=== PATIENT | female | born 1985 | race African-American/Black ===

== ENCOUNTER 2019-08-14 01:35 | Inpatient (IN) | payer OTHER ==
[2019-08-14 03:46] LABS: BASO % 0.3 % (0-2.0); EOS % 1.8 % (0-4.5); HEMATOCRIT 33.4 % (32.4-45.2); HEMOGLOBIN 10.6 GM/dL (10.7-15.3); LYMPH % 21.5 % (8-40); MCH 23.9 pg (25.7-33.7); MCHC 31.7 g/dl (32.0-36.0); MEAN CELL VOLUME 75.5 fl (80-96); MEAN PLT VOLUME 9.1 fl (7.5-11.1); MONO % 6.7 % (3.8-10.2); NEUT % 69.7 % (42.8-82.8); PLATELET COUNT 234 K/MM3 (134-434); RBC 4.42 M/mm3 (3.60-5.2); RDW 16.4 % (11.6-15.6)
[2019-08-14 04:16] LABS: BLOOD UREA NITROGEN 13.2 mg/dL (7-18); CALCIUM 8.9 mg/dL (8.5-10.1); CREATININE 0.5 mg/dL (0.55-1.3); POTASSIUM 4.2 mmol/L (3.5-5.1)
[2019-08-14 04:22] LABS: INR 0.91 (0.83-1.09); PROTHROMBIN TIME (PATIENT) 10.7 SEC (9.7-13.0)
[2019-08-14 04:25] LABS: ACTIVATED PTT 31.2 SECONDS (25.2-36.5)
[2019-08-14] MEDS ORDERED: AMPICILLIN - 2 GM in SODIUM CHLORIDE 100 ML IVPB STA (06:02)
[2019-08-14] MEDS ORDERED: ELECTROLYTE-148 SOLN 500 ML IV STA (06:05)
[2019-08-14 06:15] VITALS: BMI 53.6
[2019-08-14] MEDS ORDERED: CITRIC ACID/SODIUM CITRATE 30 ML UNIT-DOSE CUP PO ONE ×2 (06:15→08:45)
[2019-08-14] MEDS ORDERED: ELECTROLYTE-148 SOLN 1,000 ML IV SCH ×3 (06:15→08:45)
[2019-08-14] MEDS ORDERED: AMPICILLIN SODIUM 2 GM VIAL ONE (06:18)
[2019-08-14 07:08] LABS: URINE APPEARANCE TURBID; URINE BILIRUBIN NEGATIVE (NEGATIVE); URINE COLOR YELLOW; URINE GLUCOSE (UA) NEGATIVE (NEGATIVE); URINE KETONE NEGATIVE (NEGATIVE)
[2019-08-14 07:09] LABS: PH,URINE 7.5 (5.0-8.0); URINE NITRITE NEGATIVE (NEGATIVE); URINE PROTEIN 2+ (NEGATIVE); URINE UROBILINOGEN NORMAL mg/dL (0.2-1.0)
[2019-08-14 07:10] LABS: EPI CELLS 123.1 /HPF (0-5/HPF); URINE LEUK ESTERASE 3+ (NEGATIVE); URINE RBC 35.6 /hpf (0-4); URINE WBC 13.8 /hpf (0-5)
[2019-08-14 07:11] LABS: URINE BACTERIA 1315.5 /hpf (NEGATIVE)
[2019-08-14] MEDS ORDERED: DEXTROSE 5%-LACTATED RINGERS 1,000 ML IV SCH (08:45)
--- NOTE | 2019-08-14 08:56 | HP ---
Past Medical History - Admission Chief Complaint: Leakage of fluid History of Present Illness: 33 yo with chronic hypertension and prior twin delivery, @ 38.3 weeks gestation, EDC 08/25/19, admitted due to leakage of fluid. She also c/o back pain. Upon admission there was gross pooling. History Source: Patient Limitations to Obtaining History: Other (Obesity) - Past Medical History ...: 3 ...Para: 3 ...Term: 1 ...: 1 ...Spon : 0 ...Induced : 0 ...Multiple Gestation: 0 ... Weeks Gestation by Dates: 38.3 ...EDC by Dates: 08/25/19 - Past Surgical History Past Surgical History: Yes: None Hx Myomectomy: No Hx Transabdominal Cerclage: No - Smoking History Smoking history: Current every day smoker Have you smoked in the past 12 months: Yes Aproximately how many cigarettes per day: 10 - Alcohol/Substance Use Hx Alcohol Use: No - Social History History of Recent Travel: No Home Medications - Allergies Allergies/Adverse Reactions: Allergies Allergy/AdvReac Type Severity Reaction Status Date / Time No Known Drug Allergies Allergy Verified 08/14/19 02:20 - Home Medications Home Medications: Ambulatory Orders Vit/Iron Fum/Folic AC [ Tablet] 1 tablet PO DAILY 05/26/16 Labetalol HCl 100 mg PO BID 08/14/19 Review of Systems - Review of Systems Constitutional: reports: No Symptoms Eyes: reports: No Symptoms HENT: reports: No Symptoms Neck: reports: No Symptoms Cardiovascular: reports: No Symptoms Respiratory: reports: No Symptoms Gastrointestinal: reports: No Symptoms Genitourinary: reports: Pain, Other (Leakage of amniotic membrane) Breasts: reports: No Symptoms Reported Musculoskeletal: reports: No Symptoms Integumentary: reports: No Symptoms Neurological: reports: No Symptoms Endocrine: reports: No Symptoms Hematology/Lymphatic: reports: No Symptoms Psychiatric: reports: No Symptoms Pain Intensity: 3 Physical Exam - Maternity Vital Signs: Vital Signs Temperature 98.1 F 08/14/19 08:25 Pulse Rate 79 08/14/19 08:25 Respiratory Rate 20 08/14/19 08:25 Blood Pressure 148/87 08/14/19 08:25 O2 Sat by Pulse Oximetry (%) Eyes: Yes: Conjunctiva Clear HENT: Yes: Atraumatic Neck: Yes: Supple Cardiovascular: Yes: Regular Rate and Rhythm Lungs: Clear to auscultation Breast(s): Yes: WNL - Abdominal Exam/OB Number of Fetuses: Single Presentation: Vertex Contractions: Yes Regularity: Irregular Intensity: Mild - Vaginal Exam/OB Vaginal Bleediing: No Dilatation (cm): 1-2 Effacement (%): 60 Amniotic Membrane Status: Ruptured Amniotic Fluid: Yes: Clear Station: -4 - Physical Exam Musculoskeletal: Yes: WNL Extremities: Yes: WNL Integumentary: Yes: WNL ...Motor Strength: WNL Psychiatric: Yes: Alert, Oriented - Labs Lab Results: CBC, BMP 08/14/19 03:00 08/14/19 03:00 Problem List - Problems (1) Spontaneous rupture of amniotic membranes Problems reviewed: Yes Code(s): EVX9876 - (2) 38 weeks gestation of Problems reviewed: Yes Code(s): Z3A.38 - 38 WEEKS GESTATION OF (3) Chronic hypertension affecting Code(s): O10.919 - UNSP PRE-EXISTING HTN COMP , UNSP TRIMESTER (4) Obesity (BMI 30-39.9) Code(s): E66.9 - OBESITY, UNSPECIFIED (5) macrosomia affecting management of mother, antepartum Code(s): O36.60X0 - MATERNAL CARE FOR EXCESS GROWTH, UNSP TRIMESTER, UNSP Assessment/Plan 38 weeks gestation macrosomia Chronic hypertension Obesity Admit to L&D
--- NOTE | 2019-08-14 09:06 | PN ---
Progress Note (short form) - Note Progress Note: Due to suspicion of macrosomia, decision made for . Consent signed Patient also requests permanent sterilization. Consent for BTL is in chart Problem List - Problems (1) Spontaneous rupture of amniotic membranes Code(s): [id number] - (2) 38 weeks gestation of Code(s): Z3A.38 - 38 WEEKS GESTATION OF (3) Chronic hypertension affecting Code(s): O10.919 - UNSP PRE-EXISTING HTN COMP , UNSP TRIMESTER (4) Obesity (BMI 30-39.9) Code(s): E66.9 - OBESITY, UNSPECIFIED (5) macrosomia affecting management of mother, antepartum Code(s): O36.60X0 - MATERNAL CARE FOR EXCESS GROWTH, UNSP TRIMESTER, UNSP
[2019-08-14] MEDS ORDERED: BUTORPHANOL TARTRATE 1 MG/ML VIAL ONE (09:12)
[2019-08-14] MEDS ORDERED: BUTORPHANOL TARTRATE 2 MG/ML VIAL IVPUSH PRN (09:12)
[2019-08-14] MEDS ORDERED: PROMETHAZINE HCL 25 MG/1 ML VIAL IVPUSH ONE (09:14)
[2019-08-14] MEDS ORDERED: AMPICILLIN SODIUM 1 GM VIAL ONE (09:50)
[2019-08-14] MEDS: AMPICILLIN - 1 GM in SODIUM CHLORIDE 100 ML IVPB SCH ×2 (09:57→15:27)
[2019-08-14] MEDS ORDERED: OXYTOCIN 20 UNITS in 0.9% NS 40 UNIT/2,000 ML INFUS.BAG IV ONE (10:26)
[2019-08-14] MEDS ORDERED: morphine SULFATE/PF 0.5 MG/ML (2cc Syringe - QUVA) ONE (10:30)
[2019-08-14] MEDS ORDERED: IBUPROFEN 800 MG/8 ML IJ IVPB PRN (11:58)
[2019-08-14] MEDS ORDERED: METHYLERGONOVINE MALEATE 0.2 MG/1 ML AMP IM PRN ×2 (11:58→13:06)
[2019-08-14] MEDS ORDERED: IBUPROFEN 600 MG TABLET (FP) PO PRN (11:58)
[2019-08-14] MEDS ORDERED: SIMETHICONE 80 MG TAB.CHEW (FP) PO PRN (11:58)
--- NOTE | 2019-08-14 11:58 | OP ---
Operative Note - Note: Operative Date: 08/14/19 Pre-Operative Diagnosis: Suspicion of macrosomia / Multiparity Operation: Primary Low Transverse / Bilateral tubal ligation Findings: Baby in cephallic presentation Surgeon: Mckenna Santana Full Service Supervisor: Bud Vega Anesthesia: Spinal Specimens Removed: Placenta Estimated Blood Loss (mls): 700 Operative Report Dictated: Yes
[2019-08-14] MEDS: OXYTOCIN 20 UNITS in 0.9% NS 20 UNIT/1,000 ML INFUS.BAG IV SCH ×2 (12:05→18:39)
[2019-08-14] MEDS: FERROUS SO4 325 MG TABLET (FP) PO SCH (17:54)
[2019-08-14] MEDS: LABETALOL HCL 200 MG TABLET (FP) PO SCH (21:19)
[2019-08-15] MEDS: ACETAMINOPHEN 1000 MG/100 ML VIAL (NON FORMULARY) IVPB PRN ×2 (06:01→12:18)
[2019-08-15 08:11] LABS: BASO % 0.2 % (0-2.0); EOS % 1.3 % (0-4.5); LYMPH % 14.6 % (8-40); MCH 24.2 pg (25.7-33.7); MEAN CELL VOLUME 77.8 fl (80-96); MEAN PLT VOLUME 9.1 fl (7.5-11.1); MONO % 6.2 % (3.8-10.2); NEUT % 77.7 % (42.8-82.8); PLATELET COUNT 183 K/MM3 (134-434); RBC 3.72 M/mm3 (3.60-5.2); RDW 16.5 % (11.6-15.6); WHITE BLOOD COUNT 12.3 K/mm3 (4.0-10.0)
[2019-08-15] MEDS: FERROUS SO4 325 MG TABLET (FP) PO SCH ×2 (08:35→17:40)
[2019-08-15] MEDS: LABETALOL HCL 200 MG TABLET (FP) PO SCH ×2 (09:58→21:16)
[2019-08-15] MEDS: PRENATAL VITAMINS W/ FOLIC ACID TABLET (FP) PO SCH (09:58)
[2019-08-15] MEDS: ENOXAPARIN NA (PORCINE) 40 MG/0.4 ML DISP.SYRIN SQ SCH (09:58)
[2019-08-15] MEDS: SIMETHICONE 80 MG TAB.CHEW (FP) PO PRN ×2 (09:59→21:16)
[2019-08-15] MEDS ORDERED: BISACODYL 10 MG SUPP.RECT RC PRN ×2 (11:59→13:06)
--- NOTE | 2019-08-15 14:16 | PN ---
Progress Note (short form) - Note Progress Note: Anesthesiologist post op note POD#1 S/P C- section under spinal with duramorph. VSS. Ambulating. No apparent post anesthesia complications.
--- NOTE | 2019-08-15 21:15 | PN ---
Post Progress Note - Subjective Subjective: 33 yo Para 4 status post primary , seen and evaluated. She's lying in bed; she denies any headache blurry vision nor epigastric pain. Blood pressure is controlled with Labetalol. Post Day: 1 Type of Delivery: Primary C/S Vital Signs: Vital Signs Temperature 99.1 F 08/15/19 18:00 Pulse Rate 90 08/15/19 18:00 Respiratory Rate 17 08/15/19 18:00 Blood Pressure 131/62 08/15/19 18:00 O2 Sat by Pulse Oximetry (%) 98 08/14/19 21:00 Breast Exam: Yes: Soft Uterus: Yes: Fundus below umbilicus Incision: Yes: Dressing dry and intact Abdomen/GI: Yes: Tolerating PO. No: Abdominal Distention Lochia: Yes: Rubra Lochia, amount: Small Extremities: Yes: Edema Activity: Ambulating - Labs Labs: CBC WBC 12.3 K/mm3 (4.0-10.0) H 08/15/19 07:05 RBC 3.72 M/mm3 (3.60-5.2) 08/15/19 07:05 Hgb 9.0 GM/dL (10.7-15.3) L 08/15/19 07:05 Hct 29.0 % (32.4-45.2) L 08/15/19 07:05 MCV 77.8 fl (80-96) L 08/15/19 07:05 MCH 24.2 pg (25.7-33.7) L 08/15/19 07:05 MCHC 31.0 g/dl (32.0-36.0) L 08/15/19 07:05 RDW 16.5 % (11.6-15.6) H 08/15/19 07:05 Plt Count 183 K/MM3 (134-434) D 08/15/19 07:05 MPV 9.1 fl (7.5-11.1) 08/15/19 07:05 Absolute Neuts (auto) 9.6 K/mm3 (1.5-8.0) H 08/15/19 07:05 Neutrophils % 77.7 % (42.8-82.8) 08/15/19 07:05 Lymphocytes % 14.6 % (8-40) D 08/15/19 07:05 Monocytes % 6.2 % (3.8-10.2) 08/15/19 07:05 Eosinophils % 1.3 % (0-4.5) 08/15/19 07:05 Basophils % 0.2 % (0-2.0) 08/15/19 07:05 Nucleated RBC % 0 % (0-0) 08/15/19 07:05 Problem List - Problems (1) Spontaneous rupture of amniotic membranes Problems reviewed: Yes Code(s): [id number] - (2) 38 weeks gestation of Problems reviewed: Yes Code(s): Z3A.38 - 38 WEEKS GESTATION OF (3) Chronic hypertension affecting Problems reviewed: Yes Code(s): O10.919 - UNSP PRE-EXISTING HTN COMP , UNSP TRIMESTER (4) Obesity (BMI 30-39.9) Problems reviewed: Yes Code(s): E66.9 - OBESITY, UNSPECIFIED (5) macrosomia affecting management of mother, antepartum Problems reviewed: Yes Code(s): O36.60X0 - MATERNAL CARE FOR EXCESS GROWTH, UNSP TRIMESTER, UNSP Assessment/Plan Status post primary Chronic hypertension Obesity Ambulation Continue Labetalol Continue DVT prophylaxis
[2019-08-15] MEDS: oxyCODONE HCL 5 MG TABLET PO PRN (21:16)
[2019-08-15] MEDS: IBUPROFEN 600 MG TABLET (FP) PO PRN (21:17)
--- NOTE | 2019-08-15 22:12 | OP ---
DATE OF OPERATION: 08/14/2019 PREOPERATIVE DIAGNOSES: A 38 weeks' gestation with chronic hypertension and suspicion of and multiparity. POSTOPERATIVE DIAGNOSES: A 38 weeks' gestation with chronic hypertension and suspicion of and multiparity. PROCEDURE: Primary low transverse section and bilateral tubal ligation. SURGEON: Mckenna Santana MD EXTRUSION DIE COORDINATOR: Bud Vega MD ANESTHESIA: Spinal. COMPLICATIONS: None. ESTIMATED BLOOD LOSS: 700 mL. DESCRIPTION OF PROCEDURE: Patient was taken to the operating room where spinal anesthesia was administered. Patient was then prepped and draped in proper sterile fashion. A Pfannenstiel skin incision was made and carried down to the underlying layer of fascia. The fascia was incised in the midline and extended laterally. The superior aspect of the fascial incision was then grasped with a Emperatriz clamp, elevated, and the rectus muscle dissected off bluntly. Attention was then turned to the inferior aspect of the fascial incision which, in a similar fashion, was then grasped with Emperatriz clamp, elevated, and the rectus muscle dissected off bluntly. The rectus muscle was then in the midline. The peritoneum identified and entered sharply with the Metzenbaum scissors. This incision was extended superiorly and inferiorly with good visualization of the bladder. Then, the vesicouterine peritoneum was then grasped with pickup and entered sharply with the Metzenbaum scissors. This incision was extended laterally and a bladder flap created digitally. The bladder blade was then used to incise the lower uterine segment. This incision was extended laterally and the baby delivered atraumatically. Nose and mouth were suctioned and the cord clamped and cut. The was handed to the waiting wooden fence erector. The placenta was then removed manually. The uterine incision was repaired using 0 Biosyn in a running locked fashion. A second layer of the same suture was used as a means to provide excellent hemostasis. Then, the pelvis was then completely irrigated. Attention was then turned to the left tube. Then, using a Dmitri, the left tube was grasped, and using a plain gut suture, a loop of the left tube was then doubly tied and cut. The same procedure was performed on the right side, and using the Bovie cautery, the tips of the tubes were then cauterized. Then, the peritoneum was closed using 2-0 Biosyn. The fascia was reapproximated using 0 Vicryl in a running fashion. The skin was closed with arnaldo. Patient tolerated procedure well. Patient was taken to PACU in stable condition. PATHOLOGY: Portion of the right and left tube and placenta. MCKENNA SANTANA M.D. SHRUTHI/[id number]
[2019-08-16] MEDS: FERROUS SO4 325 MG TABLET (FP) PO SCH ×2 (08:47→17:42)
[2019-08-16] MEDS: PRENATAL VITAMINS W/ FOLIC ACID TABLET (FP) PO SCH (10:23)
[2019-08-16] MEDS: ENOXAPARIN NA (PORCINE) 40 MG/0.4 ML DISP.SYRIN SQ SCH (10:23)
[2019-08-16] MEDS: LABETALOL HCL 200 MG TABLET (FP) PO SCH ×2 (10:23→21:45)
--- NOTE | 2019-08-16 10:24 | PN ---
Post Progress Note - Subjective Subjective: Patient seen ad evaluated, doing well. She's on Labetalol for chronic hypertension. Post Day: 2 Type of Delivery: Primary C/S Vital Signs: Vital Signs Temperature 98.7 F 08/16/19 02:00 Pulse Rate 84 08/16/19 02:00 Respiratory Rate 20 08/16/19 02:00 Blood Pressure 140/82 08/16/19 05:34 O2 Sat by Pulse Oximetry (%) 97 08/15/19 21:00 Breast Exam: Yes: Soft Uterus: Yes: Fundus below umbilicus Incision: Yes: Dressing dry and intact Abdomen/GI: Yes: Abdomen soft, Tolerating PO Lochia: Yes: Rubra Lochia, amount: Small Extremities: Yes: Edema Activity: Ambulating - Labs Labs: CBC WBC 12.3 K/mm3 (4.0-10.0) H 08/15/19 07:05 RBC 3.72 M/mm3 (3.60-5.2) 08/15/19 07:05 Hgb 9.0 GM/dL (10.7-15.3) L 08/15/19 07:05 Hct 29.0 % (32.4-45.2) L 08/15/19 07:05 MCV 77.8 fl (80-96) L 08/15/19 07:05 MCH 24.2 pg (25.7-33.7) L 08/15/19 07:05 MCHC 31.0 g/dl (32.0-36.0) L 08/15/19 07:05 RDW 16.5 % (11.6-15.6) H 08/15/19 07:05 Plt Count 183 K/MM3 (134-434) D 08/15/19 07:05 MPV 9.1 fl (7.5-11.1) 08/15/19 07:05 Absolute Neuts (auto) 9.6 K/mm3 (1.5-8.0) H 08/15/19 07:05 Neutrophils % 77.7 % (42.8-82.8) 08/15/19 07:05 Lymphocytes % 14.6 % (8-40) D 08/15/19 07:05 Monocytes % 6.2 % (3.8-10.2) 08/15/19 07:05 Eosinophils % 1.3 % (0-4.5) 08/15/19 07:05 Basophils % 0.2 % (0-2.0) 08/15/19 07:05 Nucleated RBC % 0 % (0-0) 08/15/19 07:05 Problem List - Problems (1) Spontaneous rupture of amniotic membranes Code(s): [id number] - (2) 38 weeks gestation of Code(s): Z3A.38 - 38 WEEKS GESTATION OF (3) Chronic hypertension affecting Code(s): O10.919 - UNSP PRE-EXISTING HTN COMP , UNSP TRIMESTER (4) Obesity (BMI 30-39.9) Code(s): E66.9 - OBESITY, UNSPECIFIED (5) macrosomia affecting management of mother, antepartum Code(s): O36.60X0 - MATERNAL CARE FOR EXCESS GROWTH, UNSP TRIMESTER, UNSP Assessment/Plan Status post primary Chronic hypertension Obesity Ambulation Continue Labetalol Continue DVT prophylaxis
[2019-08-16] MEDS: oxyCODONE HCL 5 MG TABLET PO PRN ×2 (10:36→21:45)
[2019-08-16] MEDS: IBUPROFEN 600 MG TABLET (FP) PO PRN ×2 (10:38→21:47)
[2019-08-16] MEDS: SIMETHICONE 80 MG TAB.CHEW (FP) PO PRN ×2 (10:39→21:45)
--- NOTE | 2019-08-16 18:03 | PATH ---
Surgical Pathology Report Patient Name: KENYA BURCH [facility]. Rec. #: [id number] /Age/Gender: 1985 (Age: 33) / F Account: [id number] Location: [facility] OBS/SALVAGE MECHANIC Taken: 08/14/2019 Received: 08/15/2019 Reported: 08/16/2019 Physicians: Mckenna Santana M.D. Specimen(s) Received A: PLACENTA B: LEFT FALLOPIAN TUBE C: RIGHT FALLOPIAN TUBE Clinical History , 39.3 weeks suspected macrosomia Final Diagnosis A. PLACENTA: THIRD TRIMESTER PLACENTA. TRIVASCULAR CORD. MEMBRANES WITH NO DIAGNOSTIC ABNORMALITIES. B. LEFT FALLOPIAN TUBE, RESECTION: COMPLETE CROSS SECTION OF THE FALLOPIAN TUBE LUMEN IDENTIFIED. C. RIGHT FALLOPIAN TUBE, RESECTION: COMPLETE CROSS SECTION OF THE FALLOPIAN TUBE LUMEN IDENTIFIED. Electronically Signed Amaris Bean M.D. Gross Description A. The specimen is received fresh labeled "placenta" and is a 565 gram, 19 x 17 x 2.1 cm. placenta with attached membranes and umbilical cord. The attached membranes are glistening and translucent and insert marginally. The umbilical cord measures 20 cm. in length and averages 1 cm. in diameter. The cord inserts marginally. No true knots or strictures are identified. Cut surface of the umbilical cord reveals 3 vessels. The surface is thurman-blue with minimal fibrin deposition and appropriate caliber vessels. The maternal surface is red-brown with focal defects. Sectioning reveals red-brown, spongy parenchyma. No lesions are identified. Supervisor Rework sections are submitted in three cassettes as follows: 1- membrane rolls and umbilical cord; 2-3- full thickness sections of placenta. B. Received fresh labelled "portion of left fallopian tube" is a 1.3 cm long by 0.5 cm in diameter portion of tissue consistent with a portion of fallopian tube. The fimbriated end is not identified. No focal lesions are identified. Sectioned and order entry representative portions submitted in one cassette. C. Received fresh labelled "portion of right fallopian tube" is a 1.3 cm long by 0.5 cm in diameter portion of tissue consistent with a portion of fallopian tube. The fimbriated end is not identified. No focal lesions are identified. Sectioned and order entry representative portions submitted in one cassette. __ KWS/08/15/2019 abhijeet/08/15/2019
[2019-08-17 07:44] LABS: BASO % 0.1 % (0-2.0); EOS % 2.2 % (0-4.5); HEMATOCRIT 26.1 % (32.4-45.2); HEMOGLOBIN 8.4 GM/dL (10.7-15.3); LYMPH % 24.2 % (8-40); MCH 24.7 pg (25.7-33.7); MCHC 32.4 g/dl (32.0-36.0); MEAN CELL VOLUME 76.3 fl (80-96); MEAN PLT VOLUME 8.8 fl (7.5-11.1); NEUT % 65.5 % (42.8-82.8); PLATELET COUNT 207 K/MM3 (134-434); RBC 3.42 M/mm3 (3.60-5.2); RDW 17.3 % (11.6-15.6); WHITE BLOOD COUNT 9.6 K/mm3 (4.0-10.0)
[2019-08-17 08:49] VITALS: BP 132/80; PULSE 89; TEMP 97.9
[2019-08-17] MEDS: LABETALOL HCL 200 MG TABLET (FP) PO SCH (09:05)
[2019-08-17] MEDS: FERROUS SO4 325 MG TABLET (FP) PO SCH (09:05)
[2019-08-17] MEDS: PRENATAL VITAMINS W/ FOLIC ACID TABLET (FP) PO SCH (09:05)
[2019-08-17] MEDS: ENOXAPARIN NA (PORCINE) 40 MG/0.4 ML DISP.SYRIN SQ SCH (09:06)
== END 2019-08-17 10:40 | disposition home or self-care (01) | DRG 540 ==
LOC: JDEL 01:35 → JLDR 04:45 → J3W 14:00
PROVIDERS: ADMIT Obstetrics & Gynecology; ATTEND Obstetrics & Gynecology
PROC: 10D00Z1 Extraction of Products of Conception, Low, Open Approach (ICD-10-PCS; principal; 2019-08-14)
PROC: 0UB70ZZ Excision of Bilateral Fallopian Tubes, Open Approach (ICD-10-PCS; 2019-08-14)
DX: O10.92 Unspecified pre-existing hypertension complicating childbirth (principal); O99.214 Obesity complicating childbirth; O36.63X0 Maternal care for excessive fetal growth, third trimester, not applicable or unspecified; Z3A.38 38 weeks gestation of pregnancy; Z30.2 Encounter for sterilization; Z37.0 Single live birth
CPT/HCPCS: 36415; 36600; 80048; 81003; 82803; 85025; 85610; 85730; 86593; 86850; 86900; 86901; 88302-TC; 88307-TC; 94010; J0131

== ENCOUNTER 2020-05-30 18:02 | Emergency (ER) | payer OTHER ==
[2020-05-30 18:07] VITALS: BMI 46.8
[2020-05-30] MEDS ORDERED: METOCLOPRAMIDE HCL INJECTION 10 MG/2 ML VIAL IVPUSH ONE (18:09)
[2020-05-30] MEDS ORDERED: SODIUM CHLORIDE 1,000 ML IV STA (18:09)
[2020-05-30] MEDS ORDERED: ACETAMINOPHEN 500 MG TABLET (FP) PO ONE (18:09)
--- NOTE | 2020-05-30 18:09 | PDOC ---
Rapid Medical Evaluation Chief Complaint: Headache Time Seen by Provider: 05/30/20 18:04 Medical Evaluation: Allergies Allergy/AdvReac Type Severity Reaction Status Date / Time No Known Drug Allergies Allergy Verified 08/14/19 02:20 05/30/20 18:04 I have performed a brief in-person evaluation of this patient. CC: headache and hypertension PE: BP-176/95. Limited ROM to c-spine. Full flexion and extension of neck. Limited ROM with lateral rotation bilaterally. Orders: NS, Tylenol, reglan, benadryl, urine Patient to proceed to ED for further evaluation. Discharge Disposition - Diagnosis Headache - Referrals - Patient Instructions - Post Discharge Activity
--- NOTE | 2020-05-30 18:44 | PDOC ---
History of Present Illness - General Chief Complaint: Headache Stated Complaint: HEADACHE Time Seen by Provider: 05/30/20 18:04 History Source: Patient Exam Limitations: No Limitations - History of Present Illness Initial Comments: 05/30/20 18:40 34-year-old female past medical history hypertension presents to the ED complaining of migraine headache since last night. Patient states that she took Motrin with some mild relief. Headache not associated with lacrimation, fever, vomiting, changes in vision, photophobia; not maximal intensity at onset and non-exertional at onset. Patient states the headache is located posteriorly and associated with neck pain and describes the pain as a muscle spasm. Patient also states that she is concerned because she has been hypertensive and she is not on any meds right now. Pt otherwise denies: fevers, chills, syncope, lightheadedness, dizziness, chest pain, shortness of breath, palpitations, back pain, abdominal pain, nausea, vomiting, diarrhea, constipation. Past History - Medical History Allergies/Adverse Reactions: Allergies Allergy/AdvReac Type Severity Reaction Status Date / Time No Known Drug Allergies Allergy Verified 05/30/20 18:07 Home Medications: Ambulatory Orders Vit/Iron Fum/Folic AC [ Tablet] 1 tablet PO DAILY 05/26/16 Labetalol HCl 100 mg PO BID 08/14/19 Asthma: Yes (no meds) Cancer: No Cardiac Disorders: No COPD: No Diabetes: No HTN: Yes (CHRONIC) Kidney Stones: Yes Seizures: No Thyroid Disease: No - Psycho-Social/Smoking History Smoking History: Never smoked Have you smoked in the past 12 months: Yes Number of Cigarettes Smoked Daily: 10 'Breaking Loose' booklet given: 10/08/12 - Substance Abuse Hx (Audit-C & DAST Scrn) How often the patient has a drink containing alcohol: Never Score: In Men: 4 or > Positive; In Women: 3 or > Positive: 0 Screen Result (Pos requires Nsg. Audit-10AR): Negative *Physical Exam - Vital Signs Last Vital Signs Temp Pulse Resp BP Pulse Ox 98 F 92 H 18 176/95 H 100 05/30/20 18:04 05/30/20 18:04 05/30/20 18:04 05/30/20 18:04 05/30/20 18:04 - Physical Exam 05/30/20 18:42 Gen: AAOx 3, no acute distress, comfortable, no signs of respiratory distress HENT: atraumatic, normocephalic with no laceration or contusion. Nasal mucosa without erythema. Oropharynx without erythema or exudates. Mucous membranes moist. EYES: PERRL, EOM intact, conjunctiva pink NECK: ttp over cervical paravertebrals, dec ROM 2/2 muscle stiffness; trachea midline; no JVD, no lymphadenopathy, or thyromegaly CV: RRR no murmurs, gallops, or rubs. CHEST: CTA b/l no wheezing, rales or rhonchi ABD: +BS/ND. no TTP; soft, no rebound, no guarding EXTREMITY: no cyanosis or erythema. 2+ dorsalis pedis, posterior tibial, and radial pulse. No pedal edema; no calf swelling or tenderness SKIN: no rash, warm and dry, no diaphoresis HEME: no purpura or ecchymosis NEURO: normal speech, CN II-XII intact, sensation intact, normal gait, no cerebellar deficits MS: 5/5 strength in all extremities, FROM intact in all extremities. ED Treatment Course - LABORATORY CBC & Chemistry Diagram: 05/30/20 22:10 05/30/20 22:10 Medical Decision Making - Medical Decision Making 05/30/20 18:42 34-year-old female past medical history hypertension complaining of headache Patient is hypertensive to 176/95 with no other neurological symptoms found on exam Will Give Tylenol flexeril Benadryl Reglan and fluids Will assess for as well as obtain UA Will relate reassess based on results Pts headache and neck pain improved however pt is complaining of sore throat with dysphagia. BP now 145/68. Dr Styles evaluated pt bedside and recommends a soft tissue XR Soft tissue XR suspicious for RPA. Will obtain labs, rapid strep and CT soft tissue. Will reassess based on results Due to shift change pt signed out to SENIOR ANALYSIS SPECIALIST Yosvany Millan pending labs and CT soft tissue 05/30/20 22:22 Discharge - Discharge Information Problems reviewed: Yes Clinical Impression/Diagnosis: Headache Qualifiers: Headache type: tension-type Headache chronicity pattern: acute headache Intractability: not intractable Qualified Code(s): G44.209 - Tension-type headache, unspecified, not intractable - Follow up/Referral Referrals: Brook Farr [Primary Care Provider] - - Patient Discharge Instructions - Post Discharge Activity
[2020-05-30] MEDS ORDERED: CYCLOBENZAPRINE HCL 10 MG TABLET (FP) PO ONE (18:52)
[2020-05-30] MEDS ORDERED: METOCLOPRAMIDE HCL INJECTION 10 MG/2 ML VIAL ONE (18:55)
[2020-05-30] MEDS ORDERED: CYCLOBENZAPRINE HCL 10 MG TABLET (FP) ONE (19:00)
[2020-05-30] MEDS ORDERED: ACETAMINOPHEN 325 MG TABLET (FP) ONE (19:00)
--- NOTE | 2020-05-30 20:54 | PDOC ---
*Physical Exam - Vital Signs Last Vital Signs Temp Pulse Resp BP Pulse Ox 98.8 F 78 18 145/68 100 05/30/20 19:30 05/30/20 19:30 05/30/20 19:30 05/30/20 19:30 05/30/20 19:30 - Physical Exam 05/30/20 20:52 gen: sleeping, easily arousable neck: no midline ttp, FROM, states pain with swallowing, no stridor, no anterior neck ttp, R paraspinal ttp that reproduces pain ED Treatment Course - LABORATORY CBC & Chemistry Diagram: 05/30/20 22:10 05/30/20 22:10 - Medications Given in the ED: ED Medications Discontinued Medications Generic Name Dose Route Start Last Admin Trade Name Angeline PRN Reason Stop Dose Admin Acetaminophen 975 mg 05/30/20 18:09 05/30/20 19:03 Tylenol - PO 05/30/20 18:10 975 mg ONCE ONE Administration Cyclobenzaprine HCl 10 mg 05/30/20 18:52 05/30/20 19:03 Flexeril - PO 05/30/20 18:53 10 mg ONCE ONE Administration Diphenhydramine HCl 25 mg 05/30/20 18:10 05/30/20 18:59 Benadryl Injection - IVPUSH 05/30/20 18:11 25 mg ONCE ONE Administration Sodium Chloride 1,000 mls @ 1,000 mls/hr 05/30/20 18:09 05/30/20 18:58 Normal Saline - IV 05/30/20 19:08 1,000 mls/hr ASDIR STA Administration Metoclopramide HCl 10 mg 05/30/20 18:09 05/30/20 18:58 Reglan Injection - IVPUSH 05/30/20 18:10 10 mg ONCE ONE Administration Medical Decision Making - Medical Decision Making 05/30/20 20:53 a/p: 34yo female with swenson and neck pain -swenson resolved -states neck pain improved and now able to range the neck -states sore throat, will send strep and obtain soft tissue neck xray -pt also with snoring/wheezing when she sleep, states she had a sleep study in 2017, recommended a repeat given snoring/wheezing 05/31/20 00:58 pt with strep + uti retropharyngeal abscess discussed in detail with the patient with the DONOR SERVICES MANAGER pt repeatedly states she will not stay for treatment and will not be transferred and "i want to go home" pt states she wants paperwork to sign out ama states she will call Dr. Montaño her ENT tomorrow and go to the office discussed risks of airway compromise, discussed , sepsis, extension to the spine discussed that leaving the hospital without treatment is against all medical treatment options pt is aaox3 pt continuously states "I want to go home" pt able to verbalize understanding of her disease process and the risks assoc with leaving the hospital pt states she wants to go home to her kids pt will sign out ama Note: The patient insists on leaving the emergency dept and is signing out against medical advice. The patient understands the risks and complications that may result from the refusal of medical care and admission which includes and permanent disability. The patient has the mental capacity of understanding the risks of refusing care and is capable of making an informed decision. The patient was instructed to return to the emergency department should she change her mind regarding medical care or should her condition worsen. The patient signed the Against Medical Advice form. Discharge - Discharge Information Problems reviewed: Yes Clinical Impression/Diagnosis: Retropharyngeal abscess, Strep pharyngitis Headache Qualifiers: Headache type: tension-type Headache chronicity pattern: acute headache Intractability: not intractable Qualified Code(s): G44.209 - Tension-type headache, unspecified, not intractable Condition: Unchanged/Unknown Disposition: AGAINST MEDICAL ADVICE - Follow up/Referral Referrals: Brook Farr [Primary Care Provider] - - Patient Discharge Instructions - Post Discharge Activity
[2020-05-30] MEDS ORDERED: DEXAMETHASONE SOD PHOSPHATE 20 MG/5 ML VIAL IVPB ONE (21:16)
[2020-05-30] MEDS ORDERED: DEXAMETHASONE SOD PHOSPHATE 10 MG/1 ML VIAL ONE (21:50)
[2020-05-30 21:53] LABS: HCG,QUALITATIVE URINE Negative
[2020-05-30 21:54] LABS: EPI CELLS >36 /uL (0-25.1); HYALINE CASTS 1 /uL (0-3.1); URINE APPEARANCE CLOUDY; URINE BACTERIA 757 /uL (0-1359); URINE BILIRUBIN NEGATIVE (NEGATIVE); URINE COLOR RED; URINE GLUCOSE (UA) NEGATIVE (NEGATIVE); URINE KETONE NEGATIVE (NEGATIVE); URINE LEUK ESTERASE 2+ (NEGATIVE); URINE NITRITE NEGATIVE (NEGATIVE); URINE PROTEIN 2+ (NEGATIVE); URINE RBC 6504 /uL (0-23.9); URINE UROBILINOGEN 0.2 mg/dL (0.2-1.0); URINE WBC 230 /uL (0-25.8)
[2020-05-30 22:20] LABS: BASO % 0.3 % (0-2.0); EOS % 2.7 % (0-4.5); HEMATOCRIT 32.9 % (32.4-45.2); HEMOGLOBIN 10.6 GM/dL (10.7-15.3); LYMPH % 25.5 % (8-40); MCH 24.3 pg (25.7-33.7); MCHC 32.3 g/dl (32.0-36.0); MEAN CELL VOLUME 75.2 fl (80-96); MEAN PLT VOLUME 9.1 fl (7.5-11.1); MONO % 7.3 % (3.8-10.2); NEUT % 64.2 % (42.8-82.8); PLATELET COUNT 229 K/MM3 (134-434); RBC 4.37 M/mm3 (3.60-5.2); WHITE BLOOD COUNT 10.1 K/mm3 (4.0-10.0)
[2020-05-30 22:29] LABS: INR 0.95 (0.83-1.09); PROTHROMBIN TIME (PATIENT) 11.2 SEC (9.7-13.0)
[2020-05-30 22:32] LABS: ACTIVATED PTT 31.8 SECONDS (25.2-36.5)
[2020-05-30 22:51] LABS: ALBUMIN 3.3 g/dl (3.4-5.0); ALK PHOS 98 U/L (45-117); ANION GAP 7 MMOL/L (8-16); BILIRUBIN,TOTAL 0.3 mg/dL (0.2-1); BLOOD UREA NITROGEN 6.3 mg/dL (7-18); CALCIUM 8.2 mg/dL (8.5-10.1); CHLORIDE 109 mmol/L (98-107); CO2 25 mmol/L (21-32); CREATININE 0.6 mg/dL (0.55-1.3); GLUCOSE,RANDOM 82 mg/dL (74-106); POTASSIUM 3.9 mmol/L (3.5-5.1); SGOT/AST 17 U/L (15-37); SGPT/ALT 20 U/L (13-61); SODIUM 141 mmol/L (136-145); TOT PROT 6.7 g/dl (6.4-8.2)
[2020-05-31] MEDS ORDERED: AMPICILLIN NA/SULBACTAM NA 3 GM in SODIUM CHLORIDE 100 ML IVPB ONE (00:30)
--- NOTE | 2020-05-31 00:32 | PDOC ---
*Physical Exam - Vital Signs Last Vital Signs Temp Pulse Resp BP Pulse Ox 98.8 F 78 18 145/68 100 05/30/20 19:30 05/30/20 19:30 05/30/20 19:30 05/30/20 19:30 05/30/20 19:30 ED Treatment Course - LABORATORY CBC & Chemistry Diagram: 05/30/20 22:10 05/30/20 22:10 - ADDITIONAL ORDERS Additional order review: Laboratory Results 05/30/20 05/30/20 05/30/20 22:10 22:10 21:10 PT with INR 11.20 INR 0.95 PTT (Actin FS) 31.8 Sodium 141 Potassium 3.9 Chloride 109 H Carbon Dioxide 25 Anion Gap 7 L BUN 6.3 L Creatinine 0.6 Est GFR (CKD-EPI)AfAm 137.83 Est GFR (CKD-EPI)NonAf 118.92 Random Glucose 82 Calcium 8.2 L Total Bilirubin 0.3 AST 17 ALT 20 Alkaline Phosphatase 98 Total Protein 6.7 Albumin 3.3 L Beta HCG, Quant < 1.0 Urine Color Red Urine Appearance Cloudy Urine pH 6.0 Ur Specific Hope 1.011 Urine Protein 2+ H Urine Glucose (UA) Negative Urine Ketones Negative Urine Blood 3+ H Urine Nitrite Negative Urine Bilirubin Negative Urine Urobilinogen 0.2 Ur Leukocyte Esterase 2+ H Urine WBC (Auto) 230 Urine RBC (Auto) 6504 Urine Casts (Auto) 1 U Epithel Cells (Auto) >36 Urine Bacteria (Auto) 757 Urine HCG, Qual Negative 05/30/20 22:10 RBC 4.37 MCV 75.2 L MCHC 32.3 RDW 17.0 H MPV 9.1 Neutrophils % 64.2 Lymphocytes % 25.5 Monocytes % 7.3 Eosinophils % 2.7 Basophils % 0.3 - Medications Given in the ED: ED Medications Discontinued Medications Generic Name Dose Route Start Last Admin Trade Name Freq PRN Reason Stop Dose Admin Acetaminophen 975 mg 05/30/20 18:09 05/30/20 19:03 Tylenol - PO 05/30/20 18:10 975 mg ONCE ONE Administration Cyclobenzaprine HCl 10 mg 05/30/20 18:52 05/30/20 19:03 Flexeril - PO 05/30/20 18:53 10 mg ONCE ONE Administration Dexamethasone Sodium Phosphate 10 mg 05/30/20 21:16 05/30/20 22:03 Decadron Injection - IVPB 05/30/20 21:17 10 mg ONCE ONE Administration Diphenhydramine HCl 25 mg 05/30/20 18:10 05/30/20 18:59 Benadryl Injection - IVPUSH 05/30/20 18:11 25 mg ONCE ONE Administration Sodium Chloride 1,000 mls @ 1,000 mls/hr 05/30/20 18:09 05/30/20 18:58 Normal Saline - IV 05/30/20 19:08 1,000 mls/hr ASDIR STA Administration Metoclopramide HCl 10 mg 05/30/20 18:09 05/30/20 18:58 Reglan Injection - IVPUSH 05/30/20 18:10 10 mg ONCE ONE Administration ED Progress Note - Progress Note Progress Note: 05/31/20 00:31 Received patient from JUAN MANUEL Swann. Briefly, this is a 34-year-old woman history of hypertension presents emergency department complaining of occipital headache with only minimal relief of pain after taking Motrin. She denies any fevers, chills, vomiting, visual changes, photophobia. Previous laboratory testing grossly unremarkable. Urinalysis notable for 2+ protein, 3+ blood, 2+ leukoesterase 2030 WBCs 6500 RBCs and greater than 36 epithelial cells with 700+ bacteria. Rapid strep testing is positive Soft tissue of the neck reveals thickening in the retropharyngeal space. Patient is pending CT scan for evaluation of RPA. 05/31/20 00:35 Medical Decision Making - Medical Decision Making 05/31/20 00:[address] the soft tissues of the neck highly suspicious for r etropharyngeal abscess. Awaiting radiologist read at this time. Unasyn 3 g IV ordered Will contact ENT 05/31/20 01:01 The patient has requested to leave the ED against medical advice. Pt did not wan t transfer to tertiary care facility for surgical treatment of her retropharyngeal abscess. Patient has agreed to receive 1 dose of IV antibiotics prior to leaving. The patient reason(s) for leaving include, but are not limited to, the following: she did not want to stay for admission as her younger children are with her older child and her niece. I believe this patient is of sound mind and competent to refuse medical care. The patient is responding and asking questions appropriately. The patient is oriented to person, place and time. The patient is not psychotic, delusional, suicidal, homicidal or hallucinating. The patient demonstrates a normal mental capacity to make decisions regarding their healthcare. The patient is clinically sober and does not appear to be under the influence of any illicit drugs at this time. The patient has been advised of the risks, in layman terms, of leaving AMA which include, but are not limited to: Airway closure, severe infection, migration of infection, limb paralysis, severe permanent disability, loss of current lifestyle and . Alternatives have been offered - the patient remains steadfast in their wish to leave. She states she will contact Dr. Montaño-her ENT specialist first thing in the morning for reevaluation. Patient has been instructed to return to care immediately for any worsening symptoms. The patient has been advised that should she change her mind, she is welcome to return to this hospital, or any other, at any time. The patient understands that in no way does an AMA discharge mean that I do not want them to have the best medical care available. To this end, I have provided appropriate prescriptions, referrals, and discharge instructions. The patient did sign AMA paperwork. The above discussion was witnessed by Dr. Styles. Discharge - Discharge Information Problems reviewed: Yes Clinical Impression/Diagnosis: Retropharyngeal abscess, Strep pharyngitis Headache Qualifiers: Headache type: tension-type Headache chronicity pattern: acute headache Intractability: not intractable Qualified Code(s): G44.209 - Tension-type headache, unspecified, not intractable Condition: Guarded Disposition: ELOPED - Additional Discharge Information Prescriptions: Amox-Tr/K Cl [Augmentin 400 mg/5 ml Oral Suspension -] 10 ml PO BID #200 ml - Follow up/Referral Referrals: Brook Farr [Primary Care Provider] - Sal Perea MD [Staff Physician] - - Patient Discharge Instructions Additional Instructions: You are leaving the hospital AGAINST MEDICAL ADVICE. We would prefer that you stay in the hospital seeking continued treatment and be transferred to another facility where there is an ENT specialist on staff to help treat your condition. As was discussed with you, antibiotics alone will not treat this problem and surgery is required for proper care. A prescription for Augmentin has been sent to your pharmacy. Please take 10 mL twice a day. Without fail you must follow-up with your ENT specialist Dr. Perea first thing in the morning. If at anytime you develop worsening shortness of breath, worsening headache, fevers, chills, inability to swallow your own saliva, drooling or any other symptom it is recommended that you return to the closest emergency department for evaluation and treatment. - Post Discharge Activity
[2020-05-31 01:59] VITALS: BP 158/93; PULSE 81; TEMP 98.3
== END 2020-05-31 01:52 | disposition left against medical advice (07) ==
LOC: JER 18:02
PROC: 3E03329 Introduction of Other Anti-infective into Peripheral Vein, Percutaneous Approach (ICD-10-PCS; principal; 2020-05-30)
PROC: 3E033GC Introduction of Other Therapeutic Substance into Peripheral Vein, Percutaneous Approach (ICD-10-PCS; 2020-05-30)
PROC: 3E0337Z Introduction of Electrolytic and Water Balance Substance into Peripheral Vein, Percutaneous Approach (ICD-10-PCS; 2020-05-30)
DX: G44.209 Tension-type headache, unspecified, not intractable (principal)
CPT/HCPCS: 36415; 70360-TC-FY; 70450-TC; 70491-TC; 80053; 81003; 84702; 84703; 85025; 85610; 85730; 87880; 99284-25

== ENCOUNTER 2020-07-15 12:45 | Emergency (ER) | payer OTHER ==
[2020-07-15 12:50] VITALS: BP 147/80; PULSE 103; TEMP 97.7; BMI 46.8
[2020-07-15] MEDS ORDERED: KETOROLAC TROMETHAMINE 60 MG/2 ML VIAL IM ONE (13:09)
--- NOTE | 2020-07-15 13:16 | PDOC ---
History of Present Illness - General Chief Complaint: Injury Stated Complaint: FALL Time Seen by Provider: 07/15/20 12:57 History Source: Patient (L ankle and foot pain s/p fall yesterday) Exam Limitations: No Limitations - History of Present Illness Pain Location: reports: lower extremity (L ankle and foot pain) Method of Injury: Yes: fall Past History - Medical History Allergies/Adverse Reactions: Allergies Allergy/AdvReac Type Severity Reaction Status Date / Time No Known Drug Allergies Allergy Verified 07/15/20 12:50 Home Medications: Ambulatory Orders Vit/Iron Fum/Folic AC [ Tablet] 1 tablet PO DAILY 05/26/16 Labetalol HCl 100 mg PO BID 08/14/19 Amox-Tr/K Cl [Augmentin 400 mg/5 ml Oral Suspension -] 10 ml PO BID #200 ml 05/31/20 Asthma: Yes (no meds) Cancer: No Cardiac Disorders: No COPD: No Diabetes: No HTN: Yes (CHRONIC) Kidney Stones: Yes Seizures: No Thyroid Disease: No - Reproductive History Is Patient Now?: No - Psycho-Social/Smoking History Smoking History: Current every day smoker Have you smoked in the past 12 months: Yes Number of Cigarettes Smoked Daily: 10 Information on smoking cessation initiated: No 'Breaking Loose' booklet given: 10/08/12 - Substance Abuse Hx (Audit-C & DAST Scrn) How often the patient has a drink containing alcohol: 2-4 times / month Score: In Men: 4 or > Positive; In Women: 3 or > Positive: 2 Screen Result (Pos requires Nsg. Audit-10AR): Negative *Physical Exam - Vital Signs Last Vital Signs Temp Pulse Resp BP Pulse Ox 97.7 F 103 H 18 147/80 97 07/15/20 12:47 07/15/20 12:47 07/15/20 12:47 07/15/20 12:47 07/15/20 12:47 - Physical Exam General Appearance: Yes: Nourished Extremity: positive: Normal Capillary Refill, Swelling (L foot: + swelling in lateral malleous and lateral aspct of foot, distal pulse intact, limping gait. ) Neurologic: positive: scrub nurse II-XII NML intact, Fully Oriented, Alert, Normal Mood/Affect, Normal Response, Motor Strength 03/06 ED Treatment Course - RADIOLOGY Radiology Studies Ordered: Category Date Time Status ANKLE & FOOT-LEFT* [RAD] Stat Radiology 07/15/20 12:59 Ordered Medical Decision Making - Medical Decision Making 07/15/20 13:15 34y/o F with L ankle/foot pain since yesterday s/p slip and fall at home, denies lOC or head trauma exam with swelling in lateral malleous distal pulse intact xray obtained pain control 07/15/20 15:01 prelim xray neg for fx sharif wrapped ankle brace given ortho referral Discharge - Discharge Information Problems reviewed: Yes Clinical Impression/Diagnosis: Foot pain, left Left ankle sprain Qualifiers: Encounter type: initial encounter Involved ligament of ankle: unspecified ligament Qualified Code(s): S93.402A - Sprain of unspecified ligament of left ankle, initial encounter Condition: Stable Disposition: HOME - Admission No - Additional Discharge Information Prescription Drug Monitoring Program (I-STOP) results: I-STOP not reviewed - Follow up/Referral Referrals: Brook Farr [Primary Care Provider] - Wicho Hsieh MD [Staff Physician] - - Patient Discharge Instructions Patient Printed Discharge Instructions: Ankle Sprain, DI for Foot Pain Additional Instructions: Your preliminary x-ray report was negative for any acute fracture or dislocation . If the official report reads otherwise you will be contacted. You may take Motrin for pain. Keep leg elevated. Otherwise follow-up with orthopedic for further evaluation. Return to the emergency room if worsening symptoms occurs. - Post Discharge Activity Work/Back to School Note: Back to Work
[2020-07-15] MEDS ORDERED: KETOROLAC TROMETHAMINE 60 MG/2 ML VIAL ONE (13:26)
== END 2020-07-15 14:12 | disposition home or self-care (01) ==
LOC: JERFT 12:45
PROC: 3E0233Z Introduction of Anti-inflammatory into Muscle, Percutaneous Approach (ICD-10-PCS; principal; 2020-07-15)
DX: S93.402A Sprain of unspecified ligament of left ankle, initial encounter (principal)
CPT/HCPCS: 73610-TC-LT-FY; 73630-TC-LT; 99284-25

== ENCOUNTER 2020-12-31 06:05 | Emergency (ER) | payer OTHER ==
[2020-12-31 06:36] VITALS: BMI 46.8
[2020-12-31 06:58] LABS: BASO % 0.7 % (0-2.0); EOS % 2.1 % (0-4.5); HEMATOCRIT 35.5 % (32.4-45.2); HEMOGLOBIN 11.7 GM/dL (10.7-15.3); LYMPH % 26.2 % (8-40); MCH 24.7 pg (25.7-33.7); MEAN CELL VOLUME 74.6 fl (80-96); MEAN PLT VOLUME 9.4 fl (7.5-11.1); MONO % 4.2 % (3.8-10.2); NEUT % 66.8 % (42.8-82.8); PLATELET COUNT 233 K/MM3 (134-434); RBC 4.75 M/mm3 (3.60-5.2); RDW 16.7 % (11.6-15.6); WHITE BLOOD COUNT 12.2 K/mm3 (4.0-10.0)
[2020-12-31 07:14] LABS: CHLORIDE 100 mmol/L (98-107); POTASSIUM 3.9 mmol/L (3.5-5.1); SODIUM 139 mmol/L (136-145)
[2020-12-31 07:16] LABS: ALBUMIN 3.8 g/dl (3.4-5.0)
[2020-12-31 07:17] LABS: ANION GAP 8 MMOL/L (8-16); BLOOD UREA NITROGEN 14.5 mg/dL (7-18); CO2 30 mmol/L (21-32); GLUCOSE,RANDOM 102 mg/dL (74-106); MAGNESIUM 1.9 mg/dL (1.8-2.4)
[2020-12-31 07:20] LABS: CREATININE 0.7 mg/dL (0.55-1.3); SGOT/AST 10 U/L (15-37); SGPT/ALT 25 U/L (13-61)
[2020-12-31 07:21] LABS: BILIRUBIN,TOTAL 0.3 mg/dL (0.2-1); TOT PROT 7.4 g/dl (6.4-8.2)
[2020-12-31 07:22] LABS: ALK PHOS 109 U/L (45-117)
[2020-12-31 07:34] LABS: INR 0.94 (0.83-1.09); PROTHROMBIN TIME (PATIENT) 11.6 SEC (9.7-13.0)
[2020-12-31 07:36] LABS: ACTIVATED PTT 34.4 SECONDS (25.2-36.5)
[2020-12-31] MEDS ORDERED: HYDROCHLOROTHIAZIDE 25 MG TABLET (FP) PO ONE (08:05)
[2020-12-31] MEDS ORDERED: amLODIPine BESYLATE 5 MG TABLET (FP) PO ONE (08:05)
[2020-12-31] MEDS ORDERED: FAMOTIDINE 20 MG/50 ML IVPB 20 MG/50 ML MG IVPB ONE ×2 (08:06→08:12)
[2020-12-31] MEDS ORDERED: amLODIPine BESYLATE 5 MG TABLET (FP) ONE (08:11)
[2020-12-31] MEDS ORDERED: HYDROCHLOROTHIAZIDE 25 MG TABLET (FP) ONE (08:11)
[2020-12-31] MEDS ORDERED: LACTATED RINGERS SOLUTION 1000 ML INFUS.BAG IV ONE (08:15)
[2020-12-31] MEDS ORDERED: MAG HYDROX/AL HYDROX/SIMETH 30 ML UNIT-DOSE CUP PO ONE (08:34)
[2020-12-31] MEDS ORDERED: MAG HYDROX/AL HYDROX/SIMETH 30 ML UNIT-DOSE CUP ONE (09:02)
[2020-12-31 09:30] LABS: LIPASE 102 U/L (73-393)
[2020-12-31] MEDS ORDERED: ACETAMINOPHEN 325 MG TABLET (FP) PO ONE (10:08)
[2020-12-31] MEDS ORDERED: ACETAMINOPHEN 325 MG TABLET (FP) ONE (10:14)
[2020-12-31 11:46] LABS: N-TERMINAL BNP 21.3 pg/ml (5-125)
[2020-12-31 12:24] VITALS: BP 136/75; PULSE 90; TEMP 98.6
== END 2020-12-31 12:20 | disposition home or self-care (01) ==
LOC: JER 06:05
PROC: 3E033GC Introduction of Other Therapeutic Substance into Peripheral Vein, Percutaneous Approach (ICD-10-PCS; principal; 2020-12-31)
DX: R07.9 Chest pain, unspecified (principal)
CPT/HCPCS: 36415; 71045-TC-FY; 80053; 82550; 83690; 83735; 83880; 84484; 84703; 85025; 85379; 85610; 85730; 93005; 93010; 99285-25; C9803; U0003

== ENCOUNTER 2021-01-16 10:39 | Emergency (ER) | payer OTHER ==
[2021-01-16 10:47] VITALS: BP 143/77; PULSE 105; TEMP 99.6; BMI 46.8
[2021-01-16] MEDS ORDERED: VANCOMYCIN 1 GM in D5W (PRE-DOCKED) 1,000 MG/250 ML IVPB ONE (12:20)
[2021-01-16] MEDS ORDERED: VANCOMYCIN 1 GRAM (PRE-DOCKED) 1,000 MG/250 ML BAG IVPB ONE (12:30)
[2021-01-16 12:40] LABS: BASO % 0.5 % (0-2.0); EOS % 1.8 % (0-4.5); HEMATOCRIT 33.7 % (32.4-45.2); LYMPH % 17.4 % (8-40); MCH 24.4 pg (25.7-33.7); MCHC 32.5 g/dl (32.0-36.0); MEAN PLT VOLUME 9.1 fl (7.5-11.1); MONO % 5.1 % (3.8-10.2); NEUT % 75.2 % (42.8-82.8); PLATELET COUNT 222 K/MM3 (134-434); RBC 4.49 M/mm3 (3.60-5.2); RDW 16.3 % (11.6-15.6)
[2021-01-16 13:02] LABS: POTASSIUM 3.8 mmol/L (3.5-5.1)
[2021-01-16 13:04] LABS: ALBUMIN 3.6 g/dl (3.4-5.0); BLOOD UREA NITROGEN 12.3 mg/dL (7-18); CALCIUM 9.5 mg/dL (8.5-10.1)
[2021-01-16 13:07] LABS: CREATININE 0.7 mg/dL (0.55-1.3)
[2021-01-16 13:09] LABS: BILIRUBIN,TOTAL 0.5 mg/dL (0.2-1); TOT PROT 7.3 g/dl (6.4-8.2)
== END 2021-01-16 14:30 | disposition left against medical advice (07) ==
LOC: JER 10:39
DX: L03.211 Cellulitis of face (principal)
CPT/HCPCS: 36415; 80053; 85025; 99284-25

== ENCOUNTER 2021-04-04 06:57 | Emergency (ER) | payer OTHER ==
[2021-04-04 07:28] VITALS: BMI 37.5
[2021-04-04] MEDS ORDERED: LIDOCAINE 5% TOPICAL PATCH TP ONE (07:55)
[2021-04-04] MEDS ORDERED: KETOROLAC TROMETHAMINE 30 MG/1 ML VIAL IM ONE (07:55)
[2021-04-04] MEDS ORDERED: LIDOCAINE 5% TOPICAL PATCH ONE (07:57)
[2021-04-04] MEDS ORDERED: KETOROLAC TROMETHAMINE 30 MG/1 ML VIAL ONE (07:58)
[2021-04-04] MEDS ORDERED: DEXAMETHASONE SOD PHOSPHATE 10 MG/1 ML VIAL IM ONE (08:41)
[2021-04-04] MEDS ORDERED: diazePAM 2 MG TABLET PO ONE (08:41)
[2021-04-04] MEDS ORDERED: DEXAMETHASONE SOD PHOSPHATE 10 MG/1 ML VIAL ONE (08:51)
[2021-04-04] MEDS ORDERED: diazePAM 2 MG TABLET ONE (08:51)
[2021-04-04 11:20] VITALS: BP 120/78; PULSE 83; TEMP 98.2
[2021-04-04] MEDS ORDERED: LIDOCAINE PATCH REMOVAL MC SCH (22:00)
== END 2021-04-04 11:31 | disposition home or self-care (01) ==
LOC: JER 06:57
PROC: 3E023NZ Introduction of Analgesics, Hypnotics, Sedatives into Muscle, Percutaneous Approach (ICD-10-PCS; principal; 2021-04-04)
PROC: 3E0233Z Introduction of Anti-inflammatory into Muscle, Percutaneous Approach (ICD-10-PCS; 2021-04-04)
DX: M54.2 Cervicalgia (principal); I10 Essential (primary) hypertension
CPT/HCPCS: 99284-25; J1100

== ENCOUNTER 2021-06-16 19:02 | Inpatient (IN) | payer OTHER ==
[2021-06-16] MEDS ORDERED: methylPREDNISolone NA SUCC 125 MG/2 ML VIAL IVPUSH ONE (20:50)
[2021-06-16] MEDS ORDERED: methylPREDNISolone NA SUCC 125 MG/2 ML VIAL ONE (20:51)
[2021-06-16] MEDS ORDERED: FAMOTIDINE 20 MG/50 ML IVPB 20 MG/50 ML MG IVPB ONE ×2 (20:55→20:57)
[2021-06-16 21:13] LABS: BASO % 0.2 % (0-2.0); HEMATOCRIT 38.8 % (32.4-45.2); HEMOGLOBIN 12.9 GM/dL (10.7-15.3); LYMPH % 21.1 % (8-40); MCH 24.5 pg (25.7-33.7); MCHC 33.2 g/dl (32.0-36.0); MEAN CELL VOLUME 73.9 fl (80-96); MEAN PLT VOLUME 8.8 fl (7.5-11.1); MONO % 5.1 % (3.8-10.2); NEUT % 72.6 % (42.8-82.8); PLATELET COUNT 270 10^3/uL (134-434); RBC 5.25 M/mm3 (3.60-5.2); RDW 17.7 % (11.6-15.6); WHITE BLOOD COUNT 11.5 K/mm3 (4.0-10.0)
[2021-06-16 21:30] LABS: CHLORIDE 103 mmol/L (98-107); SODIUM 138 mmol/L (136-145)
[2021-06-16 21:36] LABS: ALBUMIN 3.7 g/dl (3.4-5.0); ANION GAP 9 MMOL/L (8-16); BLOOD UREA NITROGEN 11.7 mg/dL (7-18); CO2 26 mmol/L (21-32); GLUCOSE,RANDOM 102 mg/dL (74-106)
[2021-06-16 21:39] LABS: CREATININE 0.9 mg/dL (0.55-1.3); SGOT/AST 20 U/L (15-37); SGPT/ALT 33 U/L (13-61)
[2021-06-16 21:40] LABS: BILIRUBIN,TOTAL 0.6 mg/dL (0.2-1); TOT PROT 7.4 g/dl (6.4-8.2)
[2021-06-16 21:42] LABS: ALK PHOS 120 U/L (45-117)
[2021-06-16] MEDS ORDERED: EPINEPHrine 1:1,000 0.3 MG/0.3 ML SYR IM ONE (22:54)
[2021-06-16] MEDS ORDERED: EPINEPHrine/PF 1 MG/1 ML (1:1,000) AMPULE ONE (22:54)
[2021-06-16] MEDS ORDERED: TRANEXAMIC ACID 1000 MG/10 ML VIAL IVPUSH ONE (23:50)
[2021-06-17] MEDS ORDERED: TRANEXAMIC ACID 1000 MG/10 ML VIAL ONE
[2021-06-17] MEDS ORDERED: SENNOSIDES 8.6MG TABLET (FP) PO PRN (02:52)
[2021-06-17 06:14] LABS: PH,URINE 6.5 (5.0-8.0); URINE APPEARANCE CLEAR; URINE BILIRUBIN NEGATIVE (NEGATIVE); URINE COLOR YELLOW; URINE GLUCOSE (UA) NEGATIVE (NEGATIVE); URINE KETONE NEGATIVE (NEGATIVE); URINE LEUK ESTERASE NEGATIVE (NEGATIVE); URINE NITRITE NEGATIVE (NEGATIVE); URINE PROTEIN TRACE (NEGATIVE); URINE UROBILINOGEN 0.2 mg/dL (0.2-1.0)
[2021-06-17 07:56] LABS: HEMATOCRIT 35.5 % (32.4-45.2); HEMOGLOBIN 11.6 GM/dL (10.7-15.3); MCH 24.3 pg (25.7-33.7); MCHC 32.6 g/dl (32.0-36.0); MEAN CELL VOLUME 74.6 fl (80-96); MEAN PLT VOLUME 8.8 fl (7.5-11.1); PLATELET COUNT 233 10^3/uL (134-434); RBC 4.76 M/mm3 (3.60-5.2); RDW 17.4 % (11.6-15.6); WHITE BLOOD COUNT 13.2 K/mm3 (4.0-10.0)
[2021-06-17 08:20] LABS: ALBUMIN 3.7 g/dl (3.4-5.0); BLOOD UREA NITROGEN 14.2 mg/dL (7-18); CALCIUM 9.2 mg/dL (8.5-10.1); MAGNESIUM 2.4 mg/dL (1.8-2.4)
[2021-06-17 08:23] LABS: CREATININE 0.9 mg/dL (0.55-1.3); PHOSPHOROUS 2.8 mg/dL (2.5-4.9)
[2021-06-17 08:25] LABS: BILIRUBIN,TOTAL 0.4 mg/dL (0.2-1); TOT PROT 7.3 g/dl (6.4-8.2)
[2021-06-17] MEDS ORDERED: HYDROCHLOROTHIAZIDE 12.5 MG CAPSULE (FP) PO SCH (10:00)
[2021-06-17] MEDS: ENOXAPARIN NA (PORCINE) 40 MG/0.4 ML DISP.SYRIN SQ SCH ×2 (10:00→22:06)
[2021-06-17] MEDS: NICOTINE 21 MG/24 HOURS TOPICAL PATCH TD SCH (10:00)
[2021-06-17] MEDS ORDERED: ENOXAPARIN NA (PORCINE) 40 MG/0.4 ML DISP.SYRIN SQ ONE (10:03)
[2021-06-17] MEDS ORDERED: HYDROCHLOROTHIAZIDE 25 MG TABLET (FP) ONE (10:03)
[2021-06-17 15:21] LABS: IRON SERUM 76 ug/dL (50-175)
[2021-06-17 15:22] LABS: TOTAL IRON BINDING CAPACITY 438 ug/dL (250-450)
[2021-06-17 17:06] VITALS: BMI 49.6
[2021-06-17] MEDS: methylPREDNISolone 4 MG TABLET PO SCH ×2 (17:39→22:07)
[2021-06-17] MEDS ORDERED: amLODIPine BESYLATE 5 MG TABLET (FP) PO SCH (22:00)
[2021-06-18] MEDS ORDERED: ARTIFICIAL TEARS (POLYVINYL ALCOHOL) OPTH DROPS OU PRN (01:34)
[2021-06-18] MEDS ORDERED: HYDROCHLOROTHIAZIDE 12.5 MG CAPSULE (FP) PO SCH (07:00)
[2021-06-18] MEDS ORDERED: PT OWN MED DRAWER 7, Y5N ONE (10:57)
[2021-06-18] MEDS: methylPREDNISolone 4 MG TABLET PO SCH (11:25)
[2021-06-18] MEDS: NICOTINE 21 MG/24 HOURS TOPICAL PATCH TD SCH (11:25)
[2021-06-18] MEDS: ENOXAPARIN NA (PORCINE) 40 MG/0.4 ML DISP.SYRIN SQ SCH (11:25)
[2021-06-18 13:52] VITALS: BP 129/66; PULSE 84; TEMP 98.2
== END 2021-06-18 17:50 | disposition home or self-care (01) | DRG 811 ==
LOC: JER 19:02 → JERBED 23:58 → J7W 06-17 11:14
PROVIDERS: ADMIT Internal Medicine; ATTEND Internal Medicine
PROC: 30233L1 Transfusion of Nonautologous Fresh Plasma into Peripheral Vein, Percutaneous Approach (ICD-10-PCS; principal; 2021-06-17)
PROC: 30233K1 Transfusion of Nonautologous Frozen Plasma into Peripheral Vein, Percutaneous Approach (ICD-10-PCS; 2021-06-17)
DX: T78.3XXA Angioneurotic edema, initial encounter (principal); I10 Essential (primary) hypertension; G47.33 Obstructive sleep apnea (adult) (pediatric); J45.909 Unspecified asthma, uncomplicated; E66.9 Obesity, unspecified; T46.4X5A Adverse effect of angiotensin-converting-enzyme inhibitors, initial encounter; Y92.89 Other specified places as the place of occurrence of the external cause; D72.829 Elevated white blood cell count, unspecified; Z68.42 Body mass index [BMI] 45.0-49.9, adult; R80.9 Proteinuria, unspecified
CPT/HCPCS: 36415; 36430; 71045-TC-FY; 71046-TC-FY; 80053; 81003; 82550; 82728; 83036; 83540; 83550; 83735; 84100; 84484; 84703; 85025; 85027; 86850; 86900; 86901; 93005; 93010; 99285-25; C9803; P9017; U0003; U0005

== ENCOUNTER 2021-07-04 03:22 | Observation (INO) | payer OTHER ==
[2021-07-04] MEDS ORDERED: dilTIAZem HCL 125 MG/25 ML - 25 ML VIAL ONE (03:30)
[2021-07-04 03:45] LABS: BASO % 0.5 % (0-2.0); EOS % 1.6 % (0-4.5); HEMATOCRIT 35.7 % (32.4-45.2); HEMOGLOBIN 11.7 GM/dL (10.7-15.3); LYMPH % 26.8 % (8-40); MCH 24.1 pg (25.7-33.7); MCHC 32.8 g/dl (32.0-36.0); MEAN CELL VOLUME 73.4 fl (80-96); MEAN PLT VOLUME 8.6 fl (7.5-11.1); MONO % 6.2 % (3.8-10.2); NEUT % 64.9 % (42.8-82.8); PLATELET COUNT 220 10^3/uL (134-434); RBC 4.86 M/mm3 (3.60-5.2); RDW 16.3 % (11.6-15.6); WHITE BLOOD COUNT 13.5 K/mm3 (4.0-10.0)
[2021-07-04 03:52] LABS: INR 0.94 (0.83-1.09); PROTHROMBIN TIME (PATIENT) 11.4 SEC (9.7-13.0)
[2021-07-04 03:54] LABS: ACTIVATED PTT 33.9 SECONDS (25.2-36.5)
[2021-07-04] MEDS ORDERED: DILTIAZEM INJECTION 125 MG in SODIUM CHLORIDE 100 ML IVPB SCH (04:00)
[2021-07-04 04:09] LABS: CALCIUM 8.5 mg/dL (8.5-10.1)
[2021-07-04 04:10] LABS: ALBUMIN 3.4 g/dl (3.4-5.0); BLOOD UREA NITROGEN 14.6 mg/dL (7-18)
[2021-07-04 04:13] LABS: CREATININE 0.6 mg/dL (0.55-1.3)
[2021-07-04 04:15] LABS: BILIRUBIN,TOTAL 0.2 mg/dL (0.2-1)
[2021-07-04 04:18] LABS: N-TERMINAL BNP 511.3 pg/ml (5-125)
[2021-07-04] MEDS ORDERED: POTASSIUM CHLORIDE TABS 20 MEQ TABLET.ER (FP) PO ONE ×2 (04:43→04:56)
[2021-07-04 05:31] LABS: MAGNESIUM 1.9 mg/dL (1.8-2.4)
[2021-07-04 05:51] LABS: PH,URINE 7.5 (5.0-8.0); URINE APPEARANCE CLEAR; URINE BILIRUBIN NEGATIVE (NEGATIVE); URINE COLOR YELLOW; URINE GLUCOSE (UA) NEGATIVE (NEGATIVE); URINE KETONE NEGATIVE (NEGATIVE); URINE LEUK ESTERASE NEGATIVE (NEGATIVE); URINE NITRITE NEGATIVE (NEGATIVE); URINE PROTEIN TRACE (NEGATIVE); URINE UROBILINOGEN 0.2 mg/dL (0.2-1.0)
[2021-07-04] MEDS ORDERED: dilTIAZem HCL 60 MG TABLET PO ONE (06:52)
[2021-07-04] MEDS ORDERED: dilTIAZem HCL 60 MG TABLET ONE (07:12)
[2021-07-04 09:00] LABS: METHADONE, UR NEGATIVE (NEGATIVE); URINE BENZODIAZEPINES NEGATIVE (NEGATIVE)
[2021-07-04 09:43] LABS: OPIATES, URI NEGATIVE (NEGATIVE); PHENCYCLIDINE,URINE NEGATIVE (NEGATIVE)
[2021-07-04 10:00] LABS: URINE AMPHETAMINES NEGATIVE (NEGATIVE)
[2021-07-04] MEDS ORDERED: ENOXAPARIN NA (PORCINE) 40 MG/0.4 ML DISP.SYRIN SQ SCH (10:00)
[2021-07-04 10:18] VITALS: BMI 46.6
[2021-07-04 10:44] LABS: COCAINE, UR NEGATIVE (NEGATIVE); URINE BARBITURATES NEGATIVE (NEGATIVE)
[2021-07-04] MEDS ORDERED: ALBUTEROL SO4 HFA INHALER IH PRN (11:06)
[2021-07-04] MEDS ORDERED: amLODIPine BESYLATE 5 MG TABLET (FP) PO SCH (11:15)
[2021-07-04] MEDS: BUDESONIDE/FORMETEROL FUMARATE 160/4.5 mcg INHALER IH SCH ×2 (13:09→21:42)
[2021-07-04] MEDS: NICOTINE 7 MG/24 HOURS TOPICAL PATCH TD SCH (13:09)
[2021-07-04] MEDS: CHLORTHALIDONE 25 MG TABLET PO SCH (13:09)
[2021-07-04] MEDS: metoPROLOL SUCCINATE 25 MG TAB.SR.24H (FP) PO SCH (13:10)
[2021-07-04] MEDS: ENOXAPARIN NA (PORCINE) 120 MG/0.8 ML DISP.SYRIN SQ SCH ×2 (14:30→21:34)
[2021-07-05 07:33] LABS: BASO % 0.1 % (0-2.0); EOS % 3.5 % (0-4.5); HEMATOCRIT 34.2 % (32.4-45.2); HEMOGLOBIN 11.2 GM/dL (10.7-15.3); MCHC 32.7 g/dl (32.0-36.0); MEAN CELL VOLUME 73.2 fl (80-96); MEAN PLT VOLUME 8.8 fl (7.5-11.1); MONO % 4.8 % (3.8-10.2); NEUT % 58.6 % (42.8-82.8); PLATELET COUNT 210 10^3/uL (134-434); RBC 4.68 M/mm3 (3.60-5.2); RDW 16.9 % (11.6-15.6); WHITE BLOOD COUNT 9.9 K/mm3 (4.0-10.0)
[2021-07-05 07:53] LABS: CHLORIDE 105 mmol/L (98-107); SODIUM 138 mmol/L (136-145)
[2021-07-05 07:57] LABS: ALBUMIN 3.2 g/dl (3.4-5.0); ANION GAP 5 MMOL/L (8-16); BLOOD UREA NITROGEN 11.9 mg/dL (7-18); CALCIUM 8.5 mg/dL (8.5-10.1); CO2 29 mmol/L (21-32); GLUCOSE,RANDOM 94 mg/dL (74-106); MAGNESIUM 2.2 mg/dL (1.8-2.4)
[2021-07-05 08:00] LABS: CHOLESTEROL 194 mg/dL (50-200); CREATININE 0.6 mg/dL (0.55-1.3); SGOT/AST 18 U/L (15-37); SGPT/ALT 25 U/L (13-61); TRIGLYCERIDES 365 mg/dL (0-150)
[2021-07-05 08:01] LABS: BILIRUBIN,TOTAL 0.6 mg/dL (0.2-1); LDL CHOLESTEROL (ONLY SJRH) 109 mg/dL (5-100)
[2021-07-05 08:02] LABS: ALK PHOS 101 U/L (45-117); TOT PROT 6.8 g/dl (6.4-8.2)
[2021-07-05 08:03] LABS: HDL CHOLESTEROL 39 mg/dL (40-60)
[2021-07-05] MEDS: ENOXAPARIN NA (PORCINE) 120 MG/0.8 ML DISP.SYRIN SQ SCH (10:49)
[2021-07-05] MEDS: metoPROLOL SUCCINATE 25 MG TAB.SR.24H (FP) PO SCH (10:49)
[2021-07-05] MEDS: NICOTINE 7 MG/24 HOURS TOPICAL PATCH TD SCH (10:49)
[2021-07-05] MEDS: CHLORTHALIDONE 25 MG TABLET PO SCH (10:49)
[2021-07-05] MEDS: BUDESONIDE/FORMETEROL FUMARATE 160/4.5 mcg INHALER IH SCH (10:49)
[2021-07-05 10:58] VITALS: TEMP 97.7
[2021-07-05 14:29] VITALS: BP 119/72; PULSE 92
[2021-07-05] MEDS ORDERED: ATORVASTATIN CA 40 MG TABLET (FP) PO SCH (22:00)
== END 2021-07-05 16:49 | disposition home or self-care (01) ==
LOC: JER 03:22 → INTOOBSV 05:27 → JERBED 05:27 → UNDOADMOB 05:27 → JERBED 09:52 → J2W 09:52 → JERBED 15:50
PROVIDERS: ADMIT Internal Medicine; ATTEND Nurse Practitioner Family
PROC: 3E033GC Introduction of Other Therapeutic Substance into Peripheral Vein, Percutaneous Approach (ICD-10-PCS; principal; 2021-07-04)
PROC: 3E023GC Introduction of Other Therapeutic Substance into Muscle, Percutaneous Approach (ICD-10-PCS; 2021-07-04)
DX: I48.0 Paroxysmal atrial fibrillation (principal); I10 Essential (primary) hypertension; J45.909 Unspecified asthma, uncomplicated; G47.33 Obstructive sleep apnea (adult) (pediatric); T78.3XXA Angioneurotic edema, initial encounter; Z91.19 Patient's noncompliance with other medical treatment and regimen; Z99.89 Dependence on other enabling machines and devices; F17.210 Nicotine dependence, cigarettes, uncomplicated; E66.01 Morbid (severe) obesity due to excess calories; Z68.42 Body mass index [BMI] 45.0-49.9, adult
CPT/HCPCS: 36415; 71045-TC-FY; 80053; 80061; 80307; 81003; 82550; 83036; 83735; 83880; 84439; 84443; 84484; 84703; 85025; 85379; 85610; 85730; 87077; 87086; 93005; 93010; 93306-TC; 96365; 96372; 99291; C9803; G0378; U0003; U0005

== ENCOUNTER 2022-01-16 11:18 | Observation (INO) | payer OTHER ==
[2022-01-16 12:40] LABS: BASO % 0.3 % (0-2.0); HEMATOCRIT 34.2 % (32.4-45.2); HEMOGLOBIN 11.1 GM/dL (10.7-15.3); LYMPH % 24.8 % (8-40); MCH 24.4 pg (25.7-33.7); MCHC 32.3 g/dl (32.0-36.0); MEAN CELL VOLUME 75.5 fl (80-96); MEAN PLT VOLUME 8.7 fl (7.5-11.1); MONO % 4.7 % (3.8-10.2); NEUT % 68.2 % (42.8-82.8); PLATELET COUNT 233 10^3/uL (134-434); RBC 4.53 M/mm3 (3.60-5.2); RDW 16.9 % (11.6-15.6); WHITE BLOOD COUNT 9.5 K/mm3 (4.0-10.0)
[2022-01-16 13:13] LABS: CALCIUM 8.6 mg/dL (8.5-10.1)
[2022-01-16 13:14] LABS: ALBUMIN 3.4 g/dl (3.4-5.0); BLOOD UREA NITROGEN 8.2 mg/dL (7-18)
[2022-01-16 13:17] LABS: CREATININE 0.7 mg/dL (0.55-1.3)
[2022-01-16 13:19] LABS: BILIRUBIN,TOTAL 0.4 mg/dL (0.2-1); TOT PROT 6.6 g/dl (6.4-8.2)
[2022-01-16 13:22] LABS: N-TERMINAL BNP 156.8 pg/ml (5-125)
[2022-01-16 13:39] LABS: VENOUS BASE EXCESS -12.1 mmol/L (-2-2); VENOUS O2 SATURATION 90.4 % (70-80); VENOUS PCO2 23.4 mmHg (38-52); VENOUS PH 7.343 (7.310-7.410)
[2022-01-16] MEDS ORDERED: ALBUTEROL SO4 HFA INHALER IH ONE ×2 (15:17→15:55)
[2022-01-16] MEDS ORDERED: CHLORTHALIDONE 25 MG TABLET PO SCH (15:39)
[2022-01-16] MEDS ORDERED: ALBUTEROL SO4 HFA INHALER IH PRN (15:39)
[2022-01-16] MEDS ORDERED: metoPROLOL SUCCINATE 25 MG TAB.SR.24H (FP) PO SCH (15:45)
[2022-01-16] MEDS ORDERED: APIXABAN 5 MG TABLET ONE ×2 (15:54→22:47)
[2022-01-16] MEDS ORDERED: metoPROLOL SUCCINATE 25 MG TAB.SR.24H (FP) ONE (15:55)
[2022-01-16] MEDS ORDERED: ALBUTEROL SO4 2.5/IPRATROPIUM 0.5 INH SOL 3 ML VIAL.NEB. NEB ONE (22:51)
[2022-01-16] MEDS: APIXABAN 5 MG TABLET PO SCH (22:52)
[2022-01-16] MEDS: ALBUTEROL SO4 2.5/IPRATROPIUM 0.5 INH SOL 3 ML VIAL.NEB. NEB SCH ×2 (22:54→22:55)
[2022-01-17 00:51] VITALS: BMI 48.4
[2022-01-17] MEDS: ALBUTEROL SO4 2.5/IPRATROPIUM 0.5 INH SOL 3 ML VIAL.NEB. NEB SCH ×4 (07:50→20:45)
[2022-01-17 09:41] LABS: HEMATOCRIT 33.9 % (32.4-45.2); HEMOGLOBIN 11.2 GM/dL (10.7-15.3); MCH 24.9 pg (25.7-33.7); MCHC 32.9 g/dl (32.0-36.0); MEAN CELL VOLUME 75.8 fl (80-96); PLATELET COUNT 213 10^3/uL (134-434); RBC 4.48 M/mm3 (3.60-5.2); WHITE BLOOD COUNT 9.6 K/mm3 (4.0-10.0)
[2022-01-17] MEDS ORDERED: predniSONE 20 MG TABLET (UD) PO SCH ×2 (10:00)
[2022-01-17] MEDS ORDERED: metoPROLOL SUCCINATE 25 MG TAB.SR.24H (FP) PO SCH (10:00)
[2022-01-17 10:25] LABS: CALCIUM 9.1 mg/dL (8.5-10.1)
[2022-01-17 10:26] LABS: BLOOD UREA NITROGEN 7.1 mg/dL (7-18); MAGNESIUM 2.5 mg/dL (1.8-2.4)
[2022-01-17 10:29] LABS: CREATININE 0.6 mg/dL (0.55-1.3)
[2022-01-17] MEDS: APIXABAN 5 MG TABLET PO SCH ×2 (10:31→22:08)
[2022-01-17] MEDS: metoPROLOL SUCCINATE 25 MG TAB.SR.24H (FP) PO SCH (10:31)
[2022-01-17] MEDS: BUDESONIDE/FORMETEROL FUMARATE 160/4.5 mcg INHALER IH SCH ×3 (10:32→22:08)
[2022-01-17] MEDS: NICOTINE 21 MG/24 HOURS TOPICAL PATCH TD SCH (16:15)
[2022-01-18] MEDS: ALBUTEROL SO4 2.5/IPRATROPIUM 0.5 INH SOL 3 ML VIAL.NEB. NEB SCH ×3 (07:40→15:48)
[2022-01-18 07:55] LABS: BASO % 0.2 % (0-2.0); EOS % 0.2 % (0-4.5); HEMATOCRIT 33.1 % (32.4-45.2); HEMOGLOBIN 10.4 GM/dL (10.7-15.3); LYMPH % 20.9 % (8-40); MCH 24.2 pg (25.7-33.7); MCHC 31.4 g/dl (32.0-36.0); MEAN CELL VOLUME 77.2 fl (80-96); MEAN PLT VOLUME 9.4 fl (7.5-11.1); MONO % 5.7 % (3.8-10.2); PLATELET COUNT 232 10^3/uL (134-434); RBC 4.29 M/mm3 (3.60-5.2); RDW 16.8 % (11.6-15.6); WHITE BLOOD COUNT 13.1 K/mm3 (4.0-10.0)
[2022-01-18 08:21] LABS: ALBUMIN 3.2 g/dl (3.4-5.0); BLOOD UREA NITROGEN 13.1 mg/dL (7-18); CALCIUM 8.6 mg/dL (8.5-10.1)
[2022-01-18 08:24] LABS: CREATININE 0.7 mg/dL (0.55-1.3)
[2022-01-18 08:26] LABS: BILIRUBIN,TOTAL 0.4 mg/dL (0.2-1); TOT PROT 6.6 g/dl (6.4-8.2)
[2022-01-18] MEDS: NICOTINE 21 MG/24 HOURS TOPICAL PATCH TD SCH (09:51)
[2022-01-18] MEDS: metoPROLOL SUCCINATE 25 MG TAB.SR.24H (FP) PO SCH (09:51)
[2022-01-18] MEDS: APIXABAN 5 MG TABLET PO SCH (09:51)
[2022-01-18] MEDS: BUDESONIDE/FORMETEROL FUMARATE 160/4.5 mcg INHALER IH SCH (09:53)
[2022-01-18] MEDS ORDERED: PANTOPRAZOLE 40 MG TABLET PO SCH (15:45)
[2022-01-18 16:01] VITALS: BP 141/79; PULSE 89; TEMP 97.9
[2022-01-19] MEDS ORDERED: predniSONE 10 MG TABLET (UD) PO SCH (10:00)
[2022-01-20] MEDS ORDERED: predniSONE 20 MG TABLET (UD) PO SCH (10:00)
== END 2022-01-18 18:33 | disposition home or self-care (01) ==
LOC: JER 11:18 → JERBED 15:33 → J8W 23:54
PROVIDERS: ADMIT Internal Medicine; ATTEND Nurse Practitioner Family
PROC: 3E0F7GC Introduction of Other Therapeutic Substance into Respiratory Tract, Via Natural or Artificial Opening (ICD-10-PCS; principal; 2022-01-16)
DX: J96.91 Respiratory failure, unspecified with hypoxia (principal); G47.33 Obstructive sleep apnea (adult) (pediatric); I48.0 Paroxysmal atrial fibrillation; I10 Essential (primary) hypertension; J45.909 Unspecified asthma, uncomplicated; E66.01 Morbid (severe) obesity due to excess calories; Z68.42 Body mass index [BMI] 45.0-49.9, adult
CPT/HCPCS: 36415; 71045-TC-FY; 80048; 80053; 80061; 82803; 83036; 83735; 83880; 84100; 84439; 84443; 84484; 84703; 85025; 85027; 85379; 93005; 93010; 94010; 94640; 94761; 97116-GP; 97161-GP; 99285-25; C9803-CS; G0378; U0003; U0005

== ENCOUNTER 2022-08-27 17:03 | Inpatient (IN) | payer OTHER ==
[2022-08-27] MEDS ORDERED: ALBUTEROL SO4 2.5/IPRATROPIUM 0.5 INH SOL 3 ML VIAL.NEB. NEB ONE ×2 (17:46→18:29)
[2022-08-27] MEDS ORDERED: DEXAMETHASONE SOD PHOSPHATE 4 MG/1 ML VIAL IVPUSH ONE (17:56)
[2022-08-27] MEDS ORDERED: SODIUM CHLORIDE 0.9% 500 ML INFUS.BAG IV ONE (17:56)
[2022-08-27] MEDS ORDERED: DEXAMETHASONE SOD PHOSPHATE 10 MG/1 ML VIAL ONE (18:29)
[2022-08-27 18:39] LABS: VENOUS BASE EXCESS 3.3 mmol/L (-2-2); VENOUS O2 SATURATION 97.2 % (70-80); VENOUS PCO2 42.4 mmHg (38-52); VENOUS PH 7.436 (7.310-7.410)
[2022-08-27 18:44] LABS: BASO % 0.3 % (0-2.0); EOS % 0.4 % (0-4.5); HEMATOCRIT 38.2 % (32.4-45.2); HEMOGLOBIN 12.5 GM/dL (10.7-15.3); LYMPH % 21.1 % (8-40); MCH 24.5 pg (25.7-33.7); MCHC 32.7 g/dl (32.0-36.0); MEAN CELL VOLUME 74.9 fl (80-96); MEAN PLT VOLUME 8.5 fl (7.5-11.1); MONO % 8.1 % (3.8-10.2); NEUT % 70.1 % (42.8-82.8); PLATELET COUNT 268 10^3/uL (134-434); RBC 5.09 M/mm3 (3.60-5.2); RDW 16.3 % (11.6-15.6); WHITE BLOOD COUNT 9.2 K/mm3 (4.0-10.0)
[2022-08-27 18:53] LABS: ALBUMIN 3.7 g/dl (3.4-5.0); BLOOD UREA NITROGEN 13.2 mg/dL (7-18); CALCIUM 9.5 mg/dL (8.5-10.1)
[2022-08-27 18:56] LABS: CREATININE 0.8 mg/dL (0.55-1.3)
[2022-08-27 18:58] LABS: BILIRUBIN,TOTAL 0.3 mg/dL (0.2-1); TOT PROT 7.9 g/dl (6.4-8.2)
[2022-08-27] MEDS ORDERED: ONDANSETRON 4 MG/2 ML VIAL IVPUSH ONE (19:09)
[2022-08-27 19:16] LABS: MAGNESIUM 1.6 mg/dL (1.8-2.4)
[2022-08-27] MEDS ORDERED: ONDANSETRON 4 MG/2 ML VIAL ONE (19:16)
[2022-08-27] MEDS ORDERED: ALBUTEROL SO4 0.083% IH SOL 2.5 MG/3 ML VIAL.NEB. NEB ONE ×2 (21:03→21:21)
[2022-08-27] MEDS ORDERED: MAG HYDROX/AL HYDROX/SIMETH 30 ML UNIT-DOSE CUP PO ONE (21:09)
[2022-08-27] MEDS ORDERED: ACETAMINOPHEN 325 MG TABLET (FP) PO ONE (21:09)
[2022-08-27] MEDS ORDERED: FAMOTIDINE 20 MG/50 ML IVPB 20 MG/50 ML MG IVPB ONE ×2 (21:09→21:22)
[2022-08-27] MEDS ORDERED: METOCLOPRAMIDE HCL INJECTION 10 MG/2 ML VIAL IVPUSH ONE (21:19)
[2022-08-27] MEDS ORDERED: METOCLOPRAMIDE HCL INJECTION 10 MG/2 ML VIAL ONE (21:21)
[2022-08-27] MEDS ORDERED: ACETAMINOPHEN 325 MG TABLET (FP) ONE (21:21)
[2022-08-27] MEDS ORDERED: MAG HYDROX/AL HYDROX/SIMETH 30 ML UNIT-DOSE CUP ONE (21:22)
[2022-08-28] MEDS ORDERED: ALBUTEROL SO4 2.5/IPRATROPIUM 0.5 INH SOL 3 ML VIAL.NEB. NEB PRN (00:11)
[2022-08-28] MEDS ORDERED: IPRATROPIUM/ALBUTEROL (COMBIVENT) RESPIMAT 20-100 MCG IH PRN (00:20)
[2022-08-28] MEDS ORDERED: REMDESIVIR 200 MG in SODIUM CHLORIDE 250 ML IVPB ONE (01:30)
[2022-08-28] MEDS ORDERED: ALBUTEROL SO4 HFA INHALER IH PRN (03:04)
[2022-08-28] MEDS ORDERED: FAMOTIDINE 20 MG TABLET PO ONE (03:17)
[2022-08-28] MEDS ORDERED: FAMOTIDINE 20 MG TABLET ONE (03:22)
[2022-08-28] MEDS ORDERED: ALBUTEROL SO4 HFA INHALER IH ONE (05:04)
[2022-08-28 08:28] LABS: BASO % 0.3 % (0-2.0); HEMATOCRIT 34.3 % (32.4-45.2); HEMOGLOBIN 11.3 GM/dL (10.7-15.3); LYMPH % 14.5 % (8-40); MCH 24.3 pg (25.7-33.7); MCHC 32.8 g/dl (32.0-36.0); MEAN CELL VOLUME 74.1 fl (80-96); MEAN PLT VOLUME 8.6 fl (7.5-11.1); MONO % 4.7 % (3.8-10.2); NEUT % 80.5 % (42.8-82.8); PLATELET COUNT 259 10^3/uL (134-434); RBC 4.62 M/mm3 (3.60-5.2); RDW 16.3 % (11.6-15.6); WHITE BLOOD COUNT 10.1 K/mm3 (4.0-10.0)
[2022-08-28 08:54] LABS: ALBUMIN 3.4 g/dl (3.4-5.0); BLOOD UREA NITROGEN 11.2 mg/dL (7-18); CALCIUM 8.8 mg/dL (8.5-10.1); MAGNESIUM 1.9 mg/dL (1.8-2.4)
[2022-08-28 08:57] LABS: CREATININE 0.7 mg/dL (0.55-1.3)
[2022-08-28 08:59] LABS: BILIRUBIN,TOTAL 0.3 mg/dL (0.2-1); TOT PROT 7.3 g/dl (6.4-8.2)
[2022-08-28] MEDS ORDERED: metoPROLOL SUCCINATE 25 MG TAB.SR.24H (FP) PO ONE (09:00)
[2022-08-28] MEDS ORDERED: APIXABAN 5 MG TABLET ONE (09:00)
[2022-08-28] MEDS ORDERED: DEXAMETHASONE SOD PHOSPHATE 10 MG/1 ML VIAL ONE (09:00)
[2022-08-28] MEDS: APIXABAN 5 MG TABLET PO SCH ×2 (09:19→21:55)
[2022-08-28] MEDS: DEXAMETHASONE SOD PHOSPHATE 10 MG/1 ML VIAL IVPUSH SCH (09:19)
[2022-08-28] MEDS: metoPROLOL SUCCINATE 25 MG TAB.SR.24H (FP) PO SCH (09:19)
[2022-08-28] MEDS ORDERED: ENOXAPARIN NA (PORCINE) 40 MG/0.4 ML DISP.SYRIN SQ SCH (10:00)
[2022-08-28 10:40] VITALS: BMI 46.6
[2022-08-28] MEDS: BUDESONIDE/FORMETEROL FUMARATE 160/4.5 mcg INHALER IH SCH ×2 (11:33→21:56)
[2022-08-28] MEDS: SIMETHICONE 80 MG TAB.CHEW (FP) PO PRN (11:33)
[2022-08-28] MEDS ORDERED: IPRATROPIUM/ALBUTEROL (COMBIVENT) RESPIMAT 20-100 MCG IH SCH ×2 (12:00)
[2022-08-28] MEDS: ALBUTEROL SO4 2.5/IPRATROPIUM 0.5 INH SOL 3 ML VIAL.NEB. NEB SCH ×3 (12:24→20:45)
[2022-08-29] MEDS: REMDESIVIR 100 MG in SODIUM CHLORIDE 250 ML IVPB SCH (01:59)
[2022-08-29] MEDS: ALBUTEROL SO4 2.5/IPRATROPIUM 0.5 INH SOL 3 ML VIAL.NEB. NEB SCH ×4 (08:00→20:48)
[2022-08-29 08:06] LABS: HEMOGLOBIN 11.5 GM/dL (10.7-15.3); MCH 24.8 pg (25.7-33.7); MCHC 32.7 g/dl (32.0-36.0); MEAN CELL VOLUME 75.9 fl (80-96); MEAN PLT VOLUME 8.8 fl (7.5-11.1); PLATELET COUNT 259 10^3/uL (134-434); RBC 4.62 M/mm3 (3.60-5.2); RDW 16.6 % (11.6-15.6); WHITE BLOOD COUNT 10.4 K/mm3 (4.0-10.0)
[2022-08-29 08:43] LABS: ALBUMIN 3.5 g/dl (3.4-5.0); BLOOD UREA NITROGEN 18.7 mg/dL (7-18); MAGNESIUM 2.2 mg/dL (1.8-2.4)
[2022-08-29 08:46] LABS: CREATININE 0.7 mg/dL (0.55-1.3); PHOSPHOROUS 3.2 mg/dL (2.5-4.9)
[2022-08-29 08:47] LABS: BILIRUBIN,TOTAL 0.3 mg/dL (0.2-1)
[2022-08-29 08:48] LABS: TOT PROT 7.3 g/dl (6.4-8.2)
[2022-08-29] MEDS: APIXABAN 5 MG TABLET PO SCH ×2 (10:17→21:33)
[2022-08-29] MEDS: BUDESONIDE/FORMETEROL FUMARATE 160/4.5 mcg INHALER IH SCH ×2 (10:17→21:33)
[2022-08-29] MEDS: CHLORTHALIDONE 25 MG TABLET PO SCH (10:17)
[2022-08-29] MEDS: DEXAMETHASONE SOD PHOSPHATE 10 MG/1 ML VIAL IVPUSH SCH (10:17)
[2022-08-29] MEDS: metoPROLOL SUCCINATE 25 MG TAB.SR.24H (FP) PO SCH (10:17)
[2022-08-30] MEDS: SIMETHICONE 80 MG TAB.CHEW (FP) PO PRN (00:22)
[2022-08-30] MEDS: REMDESIVIR 100 MG in SODIUM CHLORIDE 250 ML IVPB SCH (00:22)
[2022-08-30 08:27] LABS: HEMOGLOBIN 11.1 GM/dL (10.7-15.3); MCH 23.9 pg (25.7-33.7); MCHC 31.8 g/dl (32.0-36.0); MEAN PLT VOLUME 9.2 fl (7.5-11.1); PLATELET COUNT 276 10^3/uL (134-434); RBC 4.67 M/mm3 (3.60-5.2); RDW 16.4 % (11.6-15.6); WHITE BLOOD COUNT 11.6 K/mm3 (4.0-10.0)
[2022-08-30 08:44] LABS: BLOOD UREA NITROGEN 17.9 mg/dL (7-18); MAGNESIUM 2.3 mg/dL (1.8-2.4)
[2022-08-30 08:47] LABS: CREATININE 0.7 mg/dL (0.55-1.3); PHOSPHOROUS 3.7 mg/dL (2.5-4.9)
[2022-08-30] MEDS: ALBUTEROL SO4 2.5/IPRATROPIUM 0.5 INH SOL 3 ML VIAL.NEB. NEB SCH ×4 (10:12→20:25)
[2022-08-30] MEDS: APIXABAN 5 MG TABLET PO SCH ×2 (10:39→21:18)
[2022-08-30] MEDS: metoPROLOL SUCCINATE 25 MG TAB.SR.24H (FP) PO SCH (10:39)
[2022-08-30] MEDS: DEXAMETHASONE SOD PHOSPHATE 10 MG/1 ML VIAL IVPUSH SCH (10:39)
[2022-08-30] MEDS: BUDESONIDE/FORMETEROL FUMARATE 160/4.5 mcg INHALER IH SCH ×2 (10:43→21:19)
[2022-08-30] MEDS: CHLORTHALIDONE 25 MG TABLET PO SCH (10:43)
[2022-08-31] MEDS: REMDESIVIR 100 MG in SODIUM CHLORIDE 250 ML IVPB SCH (00:34)
[2022-08-31] MEDS: ALBUTEROL SO4 2.5/IPRATROPIUM 0.5 INH SOL 3 ML VIAL.NEB. NEB SCH ×4 (08:43→20:05)
[2022-08-31] MEDS: APIXABAN 5 MG TABLET PO SCH ×2 (10:15→21:30)
[2022-08-31] MEDS: DEXAMETHASONE SOD PHOSPHATE 10 MG/1 ML VIAL IVPUSH SCH (10:16)
[2022-08-31] MEDS: metoPROLOL SUCCINATE 25 MG TAB.SR.24H (FP) PO SCH (10:16)
[2022-08-31] MEDS: CHLORTHALIDONE 25 MG TABLET PO SCH (10:16)
[2022-08-31] MEDS: BUDESONIDE/FORMETEROL FUMARATE 160/4.5 mcg INHALER IH SCH ×2 (10:17→21:30)
[2022-09-01] MEDS: REMDESIVIR 100 MG in SODIUM CHLORIDE 250 ML IVPB SCH (00:40)
[2022-09-01] MEDS: ALBUTEROL SO4 2.5/IPRATROPIUM 0.5 INH SOL 3 ML VIAL.NEB. NEB SCH ×2 (07:50→11:43)
[2022-09-01] MEDS: APIXABAN 5 MG TABLET PO SCH (10:30)
[2022-09-01] MEDS: BUDESONIDE/FORMETEROL FUMARATE 160/4.5 mcg INHALER IH SCH (10:31)
[2022-09-01] MEDS: CHLORTHALIDONE 25 MG TABLET PO SCH (10:31)
[2022-09-01] MEDS: metoPROLOL SUCCINATE 25 MG TAB.SR.24H (FP) PO SCH (10:31)
[2022-09-01] MEDS: DEXAMETHASONE SOD PHOSPHATE 10 MG/1 ML VIAL IVPUSH SCH (10:31)
[2022-09-01 12:47] VITALS: BP 136/83; PULSE 78; RESP 24; TEMP 98.1
== END 2022-09-01 12:51 | disposition home or self-care (01) | DRG 137 ==
LOC: JER 17:03 → JERBED 19:22 → OBSVTOIN 23:39 → J4W 08-28 10:23
PROVIDERS: ADMIT Internal Medicine; ATTEND Internal Medicine
PROC: XW033E5 Introduction of Remdesivir Anti-infective into Peripheral Vein, Percutaneous Approach, New Technology Group 5 (ICD-10-PCS; principal; 2022-08-27)
DX: U07.1 COVID-19 (principal); J12.82 Pneumonia due to coronavirus disease 2019; J96.21 Acute and chronic respiratory failure with hypoxia; I24.8 Other forms of acute ischemic heart disease; J45.901 Unspecified asthma with (acute) exacerbation; Z68.41 Body mass index [BMI] 40.0-44.9, adult; E66.01 Morbid (severe) obesity due to excess calories; I48.91 Unspecified atrial fibrillation; I10 Essential (primary) hypertension
CPT/HCPCS: 0241U-QW; 36415; 71045-TC-FY; 80048; 80053; 82803; 83735; 84100; 84484; 84703; 85025; 85027; 93005; 93010; 94640; 99285-25; C9399; G0378; J1100; J3535

== ENCOUNTER 2022-09-23 10:26 | Observation (INO) | payer OTHER ==
[2022-09-23 11:11] VITALS: RESP 18
[2022-09-23] MEDS ORDERED: ACETAMINOPHEN 1000 MG/100 ML BAG IVPB ONE (12:01)
[2022-09-23] MEDS ORDERED: ONDANSETRON 4 MG/2 ML VIAL IVPUSH ONE (12:01)
[2022-09-23] MEDS ORDERED: FAMOTIDINE 20 MG/50 ML IVPB 20 MG/50 ML MG IVPB ONE ×2 (12:01→12:03)
[2022-09-23] MEDS ORDERED: MAG HYDROX/AL HYDROX/SIMETH 30 ML UNIT-DOSE CUP PO ONE (12:01)
[2022-09-23] MEDS ORDERED: ACETAMINOPHEN INJECTION 100 ML IVPB ONE (12:02)
[2022-09-23] MEDS ORDERED: MAG HYDROX/AL HYDROX/SIMETH 30 ML UNIT-DOSE CUP ONE ×2 (12:03)
[2022-09-23] MEDS ORDERED: ONDANSETRON 4 MG/2 ML VIAL ONE (12:03)
[2022-09-23 12:54] LABS: BASO % 0.4 % (0-2.0); EOS % 1.5 % (0-4.5); HEMATOCRIT 36.8 % (32.4-45.2); HEMOGLOBIN 11.5 GM/dL (10.7-15.3); LYMPH % 21.9 % (8-40); MCH 24.2 pg (25.7-33.7); MCHC 31.4 g/dl (32.0-36.0); MEAN CELL VOLUME 77.1 fl (80-96); MEAN PLT VOLUME 9.2 fl (7.5-11.1); MONO % 4.9 % (3.8-10.2); NEUT % 71.3 % (42.8-82.8); PLATELET COUNT 284 10^3/uL (134-434); RBC 4.78 M/mm3 (3.60-5.2); RDW 16.9 % (11.6-15.6); WHITE BLOOD COUNT 9.2 K/mm3 (4.0-10.0)
[2022-09-23 13:02] LABS: INR 1.33 (0.83-1.09); PROTHROMBIN TIME (PATIENT) 15.3 SEC (9.7-13.0)
[2022-09-23 13:18] LABS: ALBUMIN 3.6 g/dl (3.4-5.0); BLOOD UREA NITROGEN 11.4 mg/dL (7-18); CALCIUM 9.2 mg/dL (8.5-10.1); MAGNESIUM 2.1 mg/dL (1.8-2.4)
[2022-09-23 13:21] LABS: CREATININE 0.8 mg/dL (0.55-1.3)
[2022-09-23 13:22] LABS: BILIRUBIN,TOTAL 0.7 mg/dL (0.2-1); TOT PROT 7.2 g/dl (6.4-8.2)
[2022-09-23] MEDS ORDERED: ASPIRIN 81 MG CHEWABLE TABLETS PO ONE (14:27)
[2022-09-23] MEDS ORDERED: ASPIRIN 81 MG CHEWABLE TABLETS ONE (14:51)
[2022-09-23] MEDS ORDERED: POTASSIUM CHLORIDE ORAL LIQUID 20 MEQ/15 ML PO ONE (15:28)
[2022-09-23 15:51] LABS: URINE APPEARANCE CLEAR; URINE BILIRUBIN NEGATIVE (NEGATIVE); URINE COLOR YELLOW; URINE GLUCOSE (UA) NEGATIVE (NEGATIVE); URINE KETONE NEGATIVE (NEGATIVE); URINE LEUK ESTERASE NEGATIVE (NEGATIVE); URINE NITRITE NEGATIVE (NEGATIVE); URINE PROTEIN NEGATIVE (NEGATIVE)
[2022-09-23] MEDS ORDERED: POTASSIUM CHLORIDE ORAL LIQUID 20 MEQ/15 ML ONE (15:55)
[2022-09-23] MEDS: APIXABAN 5 MG TABLET PO SCH (22:10)
[2022-09-23] MEDS: FAMOTIDINE 20 MG TABLET PO SCH (22:10)
[2022-09-23] MEDS: BUDESONIDE/FORMETEROL FUMARATE 160/4.5 mcg INHALER IH SCH (22:49)
[2022-09-24 02:24] VITALS: BMI 45.3
[2022-09-24 09:19] LABS: BASO % 0.3 % (0-2.0); EOS % 2.2 % (0-4.5); HEMATOCRIT 34.7 % (32.4-45.2); HEMOGLOBIN 10.9 GM/dL (10.7-15.3); LYMPH % 29.1 % (8-40); MCH 24.1 pg (25.7-33.7); MCHC 31.6 g/dl (32.0-36.0); MEAN CELL VOLUME 76.2 fl (80-96); MONO % 6.5 % (3.8-10.2); NEUT % 61.9 % (42.8-82.8); PLATELET COUNT 275 10^3/uL (134-434); RBC 4.55 M/mm3 (3.60-5.2); WHITE BLOOD COUNT 7.6 K/mm3 (4.0-10.0)
[2022-09-24] MEDS ORDERED: CHLORTHALIDONE 25 MG TABLET PO SCH (10:00)
[2022-09-24] MEDS ORDERED: metoPROLOL SUCCINATE 25 MG TAB.SR.24H (FP) PO SCH (10:00)
[2022-09-24] MEDS: APIXABAN 5 MG TABLET PO SCH (10:07)
[2022-09-24] MEDS: FAMOTIDINE 20 MG TABLET PO SCH (10:07)
[2022-09-24 11:01] LABS: ALBUMIN 3.4 g/dl (3.4-5.0); BLOOD UREA NITROGEN 9.1 mg/dL (7-18); CALCIUM 9.3 mg/dL (8.5-10.1)
[2022-09-24 11:05] LABS: CREATININE 0.8 mg/dL (0.55-1.3)
[2022-09-24 11:06] LABS: BILIRUBIN,TOTAL 0.5 mg/dL (0.2-1); TOT PROT 6.8 g/dl (6.4-8.2)
[2022-09-24] MEDS: BUDESONIDE/FORMETEROL FUMARATE 160/4.5 mcg INHALER IH SCH (11:51)
[2022-09-24 12:07] VITALS: BP 142/74; PULSE 95; TEMP 97.7
[2022-09-24 15:19] LABS: N-TERMINAL BNP 16.2 pg/ml (5-125)
== END 2022-09-24 17:08 | disposition home or self-care (01) ==
LOC: JER 10:26 → JERBED 16:47 → J4S 21:53
PROVIDERS: ADMIT Internal Medicine
PROC: 3E033NZ Introduction of Analgesics, Hypnotics, Sedatives into Peripheral Vein, Percutaneous Approach (ICD-10-PCS; principal; 2022-09-23)
PROC: 3E033GC Introduction of Other Therapeutic Substance into Peripheral Vein, Percutaneous Approach (ICD-10-PCS; 2022-09-23)
DX: R06.02 Shortness of breath (principal); I48.91 Unspecified atrial fibrillation; J45.909 Unspecified asthma, uncomplicated; Z99.81 Dependence on supplemental oxygen; K21.9 Gastro-esophageal reflux disease without esophagitis; N20.0 Calculus of kidney; Z95.0 Presence of cardiac pacemaker; Z87.891 Personal history of nicotine dependence; I10 Essential (primary) hypertension; Z91.199 Patient's noncompliance with other medical treatment and regimen due to unspecified reason
CPT/HCPCS: 0241U-QW; 36415; 71045-TC-FY; 76705-TC; 80053; 80061; 81003; 83036; 83690; 83735; 83880; 84443; 84484; 84702; 85025; 85610; 85730; 87086; 93005; 93010; 96365; 96375; 97116-GP; 97161-GP; 99285-25; G0378

== ENCOUNTER 2022-10-20 09:25 | Emergency (ER) | payer OTHER ==
[2022-10-20 09:42] VITALS: TEMP 98.4; BMI 44.8
[2022-10-20] MEDS ORDERED: FAMOTIDINE 20 MG/50 ML IVPB 20 MG/50 ML MG IVPB ONE ×2 (10:02→10:15)
[2022-10-20] MEDS ORDERED: ONDANSETRON 4 MG/2 ML VIAL IVPUSH ONE (10:03)
[2022-10-20] MEDS ORDERED: ONDANSETRON 4 MG/2 ML VIAL ONE (10:15)
[2022-10-20] MEDS ORDERED: PANTOPRAZOLE SODIUM 40 MG VIAL IVPUSH ONE (10:57)
[2022-10-20] MEDS ORDERED: PANTOPRAZOLE SODIUM 40 MG VIAL ONE (11:09)
[2022-10-20 11:13] LABS: BASO % 0.3 % (0-2.0); EOS % 0.8 % (0-4.5); HEMATOCRIT 36.1 % (32.4-45.2); HEMOGLOBIN 11.5 GM/dL (10.7-15.3); MCHC 31.7 g/dl (32.0-36.0); MEAN CELL VOLUME 75.6 fl (80-96); NEUT % 75.9 % (42.8-82.8); PLATELET COUNT 357 10^3/uL (134-434); RBC 4.78 M/mm3 (3.60-5.2); RDW 16.3 % (11.6-15.6)
[2022-10-20 11:17] LABS: EPI CELLS 34 /uL (0-25.1); HYALINE CASTS 1 /uL (0-3.1); URINE APPEARANCE CLEAR; URINE BACTERIA 235 /uL (0-1359); URINE BILIRUBIN NEGATIVE (NEGATIVE); URINE COLOR YELLOW; URINE GLUCOSE (UA) NEGATIVE (NEGATIVE); URINE KETONE NEGATIVE (NEGATIVE); URINE LEUK ESTERASE TRACE (NEGATIVE); URINE NITRITE NEGATIVE (NEGATIVE); URINE PROTEIN 1+ (NEGATIVE); URINE RBC 36 /uL (0-23.9); URINE UROBILINOGEN 0.2 mg/dL (0.2-1.0); URINE WBC 21 /uL (0-25.8)
[2022-10-20 11:34] LABS: ALBUMIN 3.6 g/dl (3.4-5.0); BLOOD UREA NITROGEN 10.5 mg/dL (7-18); CALCIUM 9.6 mg/dL (8.5-10.1)
[2022-10-20 11:35] LABS: MAGNESIUM 1.9 mg/dL (1.8-2.4)
[2022-10-20 11:39] LABS: BILIRUBIN,TOTAL 0.5 mg/dL (0.2-1); CREATININE 0.8 mg/dL (0.55-1.3); TOT PROT 7.5 g/dl (6.4-8.2)
[2022-10-20 11:41] LABS: LACTIC ACID 2.8 mmol/L (0.4-2.0)
[2022-10-20] MEDS ORDERED: SODIUM CHLORIDE 0.9% 1000 ML INFUS.BAG IV ONE (11:49)
[2022-10-20 18:20] VITALS: BP 121/73; PULSE 72; RESP 19
== END 2022-10-20 20:20 | disposition home or self-care (01) ==
LOC: JER 09:25
PROC: 3E033GC Introduction of Other Therapeutic Substance into Peripheral Vein, Percutaneous Approach (ICD-10-PCS; principal; 2022-10-20)
DX: R10.84 Generalized abdominal pain (principal)
CPT/HCPCS: 0241U-QW; 36415; 71045-TC-FY; 74177-TC; 80053; 81003; 83605; 83690; 83735; 84484; 84703; 85025; 86850; 86900; 86901; 87086; 93005; 93010; 99285-25; Q9967

== ENCOUNTER 2022-10-26 20:30 | Emergency (ER) | payer OTHER ==
[2022-10-26 20:39] VITALS: TEMP 98.2; BMI 45.7
[2022-10-26] MEDS ORDERED: SODIUM CHLORIDE 0.9% 500 ML INFUS.BAG IV ONE (21:34)
[2022-10-26] MEDS ORDERED: MAG HYDROX/AL HYDROX/SIMETH 30 ML UNIT-DOSE CUP PO ONE (21:34)
[2022-10-26] MEDS ORDERED: ONDANSETRON 4 MG/2 ML VIAL IVPB ONE (21:35)
[2022-10-26] MEDS ORDERED: FAMOTIDINE 20 MG/50 ML IVPB 20 MG/50 ML MG IVPB ONE ×2 (21:35→21:48)
[2022-10-26] MEDS ORDERED: ONDANSETRON 4 MG/2 ML VIAL ONE (21:48)
[2022-10-26] MEDS ORDERED: MAG HYDROX/AL HYDROX/SIMETH 30 ML UNIT-DOSE CUP ONE (21:48)
[2022-10-26] MEDS ORDERED: SIMETHICONE 80 MG TAB.CHEW (FP) PO ONE (21:51)
[2022-10-26 22:19] LABS: BASO % 0.4 % (0-2.0); EOS % 0.4 % (0-4.5); HEMATOCRIT 36.8 % (32.4-45.2); HEMOGLOBIN 11.5 GM/dL (10.7-15.3); LYMPH % 21.3 % (8-40); MCH 23.8 pg (25.7-33.7); MCHC 31.2 g/dl (32.0-36.0); MEAN CELL VOLUME 76.2 fl (80-96); MEAN PLT VOLUME 8.7 fl (7.5-11.1); MONO % 6.4 % (3.8-10.2); NEUT % 71.5 % (42.8-82.8); PLATELET COUNT 330 10^3/uL (134-434); RBC 4.83 M/mm3 (3.60-5.2); RDW 16.3 % (11.6-15.6); WHITE BLOOD COUNT 11.8 K/mm3 (4.0-10.0)
[2022-10-26] MEDS ORDERED: SIMETHICONE 80 MG TAB.CHEW (FP) ONE (22:26)
[2022-10-26 22:40] LABS: CALCIUM 9.4 mg/dL (8.5-10.1)
[2022-10-26 22:41] LABS: ALBUMIN 3.8 g/dl (3.4-5.0)
[2022-10-26 22:44] LABS: CREATININE 0.8 mg/dL (0.55-1.3)
[2022-10-26 22:45] LABS: BILIRUBIN,TOTAL 0.3 mg/dL (0.2-1); TOT PROT 7.5 g/dl (6.4-8.2)
[2022-10-26] MEDS ORDERED: metoPROLOL SUCCINATE 25 MG TAB.SR.24H (FP) PO ONE ×3 (22:51→23:28)
[2022-10-26 23:37] VITALS: BP 160/84; PULSE 104; RESP 22
== END 2022-10-26 23:40 | disposition home or self-care (01) ==
LOC: JER 20:30
PROC: 3E033GC Introduction of Other Therapeutic Substance into Peripheral Vein, Percutaneous Approach (ICD-10-PCS; principal; 2022-10-26)
PROC: 3E033GC Introduction of Other Therapeutic Substance into Peripheral Vein, Percutaneous Approach (ICD-10-PCS; 2022-10-26)
DX: R11.2 Nausea with vomiting, unspecified (principal); J02.9 Acute pharyngitis, unspecified
CPT/HCPCS: 36415; 73630-TC-LT; 80053; 84484; 85025; 93005; 93010; 99285-25

== ENCOUNTER 2022-10-31 07:59 | Emergency (ER) | payer OTHER ==
[2022-10-31 08:20] VITALS: BP 130/63; PULSE 95; RESP 18; TEMP 98.9; BMI 45.7
[2022-10-31] MEDS ORDERED: ALBUTEROL SO4 2.5/IPRATROPIUM 0.5 INH SOL 3 ML VIAL.NEB. NEB ONE (08:49)
[2022-10-31] MEDS ORDERED: KETOROLAC TROMETHAMINE 30 MG/1 ML VIAL IM ONE (08:53)
[2022-10-31] MEDS ORDERED: KETOROLAC TROMETHAMINE 30 MG/1 ML VIAL ONE (09:04)
[2022-10-31 09:50] LABS: URINE APPEARANCE CLEAR; URINE BILIRUBIN NEGATIVE (NEGATIVE); URINE COLOR YELLOW; URINE GLUCOSE (UA) NEGATIVE (NEGATIVE); URINE KETONE NEGATIVE (NEGATIVE); URINE LEUK ESTERASE NEGATIVE (NEGATIVE); URINE NITRITE NEGATIVE (NEGATIVE); URINE PROTEIN TRACE (NEGATIVE); URINE UROBILINOGEN 0.2 mg/dL (0.2-1.0)
[2022-10-31] MEDS ORDERED: MAG HYDROX/AL HYDROX/SIMETH 30 ML UNIT-DOSE CUP PO ONE (10:07)
[2022-10-31] MEDS ORDERED: FAMOTIDINE 20 MG TABLET PO ONE (10:07)
[2022-10-31] MEDS ORDERED: MAG HYDROX/AL HYDROX/SIMETH 30 ML UNIT-DOSE CUP ONE (10:10)
[2022-10-31] MEDS ORDERED: FAMOTIDINE 20 MG TABLET ONE (10:10)
[2022-10-31 10:39] LABS: BASO % 0.5 % (0-2.0); EOS % 0.9 % (0-4.5); HEMATOCRIT 36.7 % (32.4-45.2); HEMOGLOBIN 11.5 GM/dL (10.7-15.3); LYMPH % 19.7 % (8-40); MCH 23.7 pg (25.7-33.7); MCHC 31.4 g/dl (32.0-36.0); MEAN CELL VOLUME 75.5 fl (80-96); MEAN PLT VOLUME 9.2 fl (7.5-11.1); MONO % 5.4 % (3.8-10.2); NEUT % 73.5 % (42.8-82.8); PLATELET COUNT 294 10^3/uL (134-434); RBC 4.86 M/mm3 (3.60-5.2); RDW 16.1 % (11.6-15.6); WHITE BLOOD COUNT 12.4 K/mm3 (4.0-10.0)
[2022-10-31 10:55] LABS: ALBUMIN 3.8 g/dl (3.4-5.0)
[2022-10-31 10:57] LABS: BLOOD UREA NITROGEN 16.9 mg/dL (7-18); CALCIUM 9.7 mg/dL (8.5-10.1)
[2022-10-31 10:59] LABS: CREATININE 0.8 mg/dL (0.55-1.3)
[2022-10-31 11:01] LABS: BILIRUBIN,TOTAL 0.6 mg/dL (0.2-1); TOT PROT 7.4 g/dl (6.4-8.2)
[2022-10-31] MEDS ORDERED: POTASSIUM CHLORIDE TABS 20 MEQ TABLET.ER (FP) PO ONE (11:50)
[2022-10-31] MEDS ORDERED: PANTOPRAZOLE 20 MG TABLET PO ONE ×2 (11:53→12:40)
[2022-10-31] MEDS ORDERED: POTASSIUM CHLORIDE TABS 10 MEQ TABLET.ER (FP) ONE (12:40)
== END 2022-10-31 13:51 | disposition home or self-care (01) ==
LOC: JER 07:59
PROC: 3E023GC Introduction of Other Therapeutic Substance into Muscle, Percutaneous Approach (ICD-10-PCS; principal; 2022-10-31)
PROC: 3E0F7GC Introduction of Other Therapeutic Substance into Respiratory Tract, Via Natural or Artificial Opening (ICD-10-PCS; 2022-10-31)
DX: I48.91 Unspecified atrial fibrillation (principal); R10.13 Epigastric pain
CPT/HCPCS: 0241U-QW; 36415; 71045-TC-FY; 80053; 81003; 83690; 83735; 84484; 85025; 87086; 87651; 93005; 93010; 99285-25

== ENCOUNTER 2022-12-29 04:59 | Emergency (ER) | payer OTHER ==
[2022-12-29 05:05] VITALS: BP 140/81; RESP 18; TEMP 99.9; BMI 45.7
[2022-12-29 05:16] VITALS: PULSE 97
[2022-12-29] MEDS ORDERED: AMOX TR/POT CLAV 875MG/125MG TABLETS (FP) PO ONE (05:32)
[2022-12-29] MEDS ORDERED: AZITHROMYCIN 250 MG TABLET PO ONE (05:32)
[2022-12-29] MEDS ORDERED: IBUPROFEN 600 MG TABLET (FP) PO ONE (05:33)
[2022-12-29] MEDS ORDERED: ACETAMINOPHEN 325 MG TABLET (FP) PO ONE (05:34)
[2022-12-29] MEDS ORDERED: AZITHROMYCIN 250 MG TABLET ONE (05:43)
[2022-12-29] MEDS ORDERED: ACETAMINOPHEN 325 MG TABLET (FP) ONE (05:44)
[2022-12-29] MEDS ORDERED: AMOX TR/POT CLAV 875MG/125MG TABLETS (FP) ONE (05:44)
== END 2022-12-29 06:27 | disposition home or self-care (01) ==
LOC: JER 04:59
DX: J18.9 Pneumonia, unspecified organism (principal)
CPT/HCPCS: 99283-25

== ENCOUNTER 2023-01-12 21:31 | Emergency (ER) | payer OTHER ==
[2023-01-12 21:42] VITALS: BP 112/72; PULSE 90; RESP 20; TEMP 98.3; BMI 46.6
[2023-01-12] MEDS ORDERED: FAMOTIDINE 20 MG/50 ML IVPB 20 MG/50 ML MG IVPB ONE ×2 (22:26→22:41)
[2023-01-12] MEDS ORDERED: ACETAMINOPHEN 1000 MG/100 ML BAG IVPB ONE (22:26)
[2023-01-12] MEDS ORDERED: MAG HYDROX/AL HYDROX/SIMETH 30 ML UNIT-DOSE CUP PO ONE (22:26)
[2023-01-12] MEDS ORDERED: ACETAMINOPHEN INJECTION 100 ML IVPB ONE (22:41)
[2023-01-12] MEDS ORDERED: MAG HYDROX/AL HYDROX/SIMETH 30 ML UNIT-DOSE CUP ONE (22:41)
[2023-01-12 22:59] LABS: BASO % 0.6 % (0-2.0); EOS % 2.2 % (0-4.5); LYMPH % 28.1 % (8-40); MONO % 6.3 % (3.8-10.2); NEUT % 62.8 % (42.8-82.8)
[2023-01-12 23:05] LABS: HEMATOCRIT 33.1 % (32.4-45.2); HEMOGLOBIN 10.4 GM/dL (10.7-15.3); MCH 22.5 pg (25.7-33.7); MCHC 31.3 g/dl (32.0-36.0); MEAN CELL VOLUME 71.7 fl (80-96); MEAN PLT VOLUME 8.9 fl (7.5-11.1); PLATELET COUNT 338 10^3/uL (134-434); RBC 4.62 M/mm3 (3.60-5.2); RDW 15.6 % (11.6-15.6); WHITE BLOOD COUNT 11.6 K/mm3 (4.0-10.0)
[2023-01-12 23:25] LABS: ALBUMIN 3.8 g/dl (3.4-5.0); CALCIUM 9.7 mg/dL (8.5-10.1)
[2023-01-12 23:26] LABS: BLOOD UREA NITROGEN 11.8 mg/dL (7-18)
[2023-01-12 23:28] LABS: CREATININE 0.7 mg/dL (0.55-1.3)
[2023-01-12 23:30] LABS: BILIRUBIN,TOTAL 0.5 mg/dL (0.2-1); TOT PROT 7.8 g/dl (6.4-8.2)
[2023-01-12 23:40] LABS: PLATELET ESTIMATE NORMAL
== END 2023-01-13 02:24 | disposition home or self-care (01) ==
LOC: JER 21:31
PROC: 3E033GC Introduction of Other Therapeutic Substance into Peripheral Vein, Percutaneous Approach (ICD-10-PCS; principal; 2023-01-12)
PROC: 3E033NZ Introduction of Analgesics, Hypnotics, Sedatives into Peripheral Vein, Percutaneous Approach (ICD-10-PCS; 2023-01-12)
DX: R10.13 Epigastric pain (principal); R10.11 Right upper quadrant pain
CPT/HCPCS: 36415; 71045-TC-FY; 76705-TC; 80053; 83690; 84484; 84703; 85025; 93005; 93010; 99285-25

== ENCOUNTER 2023-03-17 04:40 | Emergency (ER) | payer OTHER ==
[2023-03-17 04:48] VITALS: BMI 45.7
[2023-03-17] MEDS ORDERED: ACETAMINOPHEN 500 MG TABLET (FP) PO ONE (04:55)
[2023-03-17] MEDS ORDERED: ACETAMINOPHEN 325 MG TABLET (FP) ONE (05:00)
[2023-03-17 06:05] LABS: BASO % 0.2 % (0-2.0); EOS % 1.5 % (0-4.5); HEMATOCRIT 31.9 % (32.4-45.2); HEMOGLOBIN 10.4 GM/dL (10.7-15.3); LYMPH % 26.5 % (8-40); MCH 22.2 pg (25.7-33.7); MCHC 32.5 g/dl (32.0-36.0); MEAN CELL VOLUME 68.2 fl (80-96); MEAN PLT VOLUME 9.5 fl (7.5-11.1); MONO % 5.2 % (3.8-10.2); NEUT % 66.6 % (42.8-82.8); PLATELET COUNT 273 10^3/uL (134-434); RBC 4.67 M/mm3 (3.60-5.2); RDW 16.9 % (11.6-15.6); WHITE BLOOD COUNT 10.8 K/mm3 (4.0-10.0)
[2023-03-17 06:13] LABS: INR 1.31 (0.83-1.09); PROTHROMBIN TIME (PATIENT) 15.2 SEC (9.7-13.0)
[2023-03-17 06:16] LABS: ACTIVATED PTT 40.7 SECONDS (25.2-36.5)
[2023-03-17 06:25] VITALS: BP 104/55; PULSE 82; RESP 18; TEMP 98.3
[2023-03-17 06:25] LABS: POTASSIUM 3.4 mmol/L (3.5-5.1)
[2023-03-17 06:27] LABS: CALCIUM 9.1 mg/dL (8.5-10.1)
[2023-03-17 06:28] LABS: ALBUMIN 3.7 g/dl (3.4-5.0); BLOOD UREA NITROGEN 16.1 mg/dL (7-18); MAGNESIUM 2.1 mg/dL (1.8-2.4)
[2023-03-17 06:31] LABS: CREATININE 0.7 mg/dL (0.55-1.3)
[2023-03-17 06:32] LABS: BILIRUBIN,TOTAL 0.3 mg/dL (0.2-1); TOT PROT 7.5 g/dl (6.4-8.2)
[2023-03-17 06:36] LABS: N-TERMINAL BNP 15.3 pg/ml (5-125)
== END 2023-03-17 06:56 | disposition home or self-care (01) ==
LOC: JER 04:40
DX: J02.9 Acute pharyngitis, unspecified (principal); R07.9 Chest pain, unspecified; Z20.822 Contact with and (suspected) exposure to COVID-19
CPT/HCPCS: 0241U-QW; 36415; 71045-TC-FY; 80053; 83735; 83880; 84484; 85025; 85610; 85730; 93005; 93010; 99285-25

== ENCOUNTER 2023-04-03 15:31 | Emergency (ER) | payer OTHER ==
[2023-04-03 15:42] VITALS: BMI 46.7
[2023-04-03 17:41] LABS: PH,URINE 7.5 (5.0-8.0); URINE APPEARANCE CLEAR; URINE BILIRUBIN NEGATIVE (NEGATIVE); URINE COLOR YELLOW; URINE GLUCOSE (UA) NEGATIVE (NEGATIVE); URINE KETONE NEGATIVE (NEGATIVE); URINE LEUK ESTERASE NEGATIVE (NEGATIVE); URINE NITRITE NEGATIVE (NEGATIVE); URINE PROTEIN NEGATIVE (NEGATIVE); URINE UROBILINOGEN 0.2 mg/dL (0.2-1.0)
[2023-04-03] MEDS ORDERED: LIDOCAINE 5% TOPICAL PATCH TP ONE (17:55)
[2023-04-03] MEDS ORDERED: morphine CARPU-JECT 4 MG/1 ML DISP.SYRIN IVPUSH ONE (17:57)
[2023-04-03] MEDS ORDERED: morphine SULFATE 4 MG/ML VIAL ONE (18:02)
[2023-04-03] MEDS ORDERED: LIDOCAINE 5% TOPICAL PATCH ONE (18:02)
[2023-04-03 18:10] LABS: BASO % 0.4 % (0-2.0); EOS % 1.6 % (0-4.5); HEMATOCRIT 30.7 % (32.4-45.2); HEMOGLOBIN 9.6 GM/dL (10.7-15.3); LYMPH % 23.3 % (8-40); MCH 21.2 pg (25.7-33.7); MCHC 31.2 g/dl (32.0-36.0); MEAN PLT VOLUME 8.7 fl (7.5-11.1); MONO % 5.5 % (3.8-10.2); NEUT % 69.2 % (42.8-82.8); PLATELET COUNT 293 10^3/uL (134-434); RBC 4.52 M/mm3 (3.60-5.2); RDW 17.3 % (11.6-15.6); WHITE BLOOD COUNT 10.7 K/mm3 (4.0-10.0)
[2023-04-03 18:28] LABS: POTASSIUM 3.8 mmol/L (3.5-5.1)
[2023-04-03 18:30] LABS: CALCIUM 9.4 mg/dL (8.5-10.1)
[2023-04-03 18:31] LABS: ALBUMIN 3.6 g/dl (3.4-5.0); BLOOD UREA NITROGEN 10.3 mg/dL (7-18); MAGNESIUM 2.1 mg/dL (1.8-2.4)
[2023-04-03 18:35] LABS: CREATININE 0.6 mg/dL (0.55-1.3)
[2023-04-03 18:36] LABS: BILIRUBIN,TOTAL 0.3 mg/dL (0.2-1); TOT PROT 7.1 g/dl (6.4-8.2)
[2023-04-03 18:45] LABS: ANISOCYTOSIS 3+; MACROCYTOSIS 0
[2023-04-03 20:18] VITALS: BP 112/62; PULSE 83; TEMP 98.9
[2023-04-03] MEDS ORDERED: KETOROLAC TROMETHAMINE 15 MG/ML VIAL IVPUSH ONE (21:02)
[2023-04-03] MEDS ORDERED: ACETAMINOPHEN 1000 MG/100 ML BAG IVPB ONE (21:06)
[2023-04-03] MEDS ORDERED: diazePAM 5 MG TABLET PO ONE (21:07)
[2023-04-03] MEDS ORDERED: KETOROLAC TROMETHAMINE 15 MG/ML VIAL ONE (21:22)
[2023-04-03] MEDS ORDERED: diazePAM 5 MG TABLET ONE (21:22)
[2023-04-03] MEDS ORDERED: ACETAMINOPHEN INJECTION 100 ML IVPB ONE (21:22)
[2023-04-04] MEDS ORDERED: LIDOCAINE PATCH REMOVAL MC SCH (06:00)
== END 2023-04-03 22:54 | disposition home or self-care (01) ==
LOC: JER 15:31
PROC: 3E033NZ Introduction of Analgesics, Hypnotics, Sedatives into Peripheral Vein, Percutaneous Approach (ICD-10-PCS; principal; 2023-04-03)
PROC: 3E0333Z Introduction of Anti-inflammatory into Peripheral Vein, Percutaneous Approach (ICD-10-PCS; 2023-04-03)
PROC: 3E033GC Introduction of Other Therapeutic Substance into Peripheral Vein, Percutaneous Approach (ICD-10-PCS; 2023-04-03)
DX: M54.6 Pain in thoracic spine (principal); R07.89 Other chest pain
CPT/HCPCS: 36415; 71045-TC-FY; 71275-TC; 74174-TC; 80053; 81003; 83690; 83735; 84484; 84703; 85025; 87086; 93005; 93010; 99285-25; Q9967

== ENCOUNTER 2024-04-01 20:19 | Emergency (ER) | payer OTHER ==
[2024-04-01 20:57] VITALS: BP 132/61; PULSE 100; RESP 18; TEMP 98.7; BMI 49.4
== END 2024-04-01 21:19 | disposition home or self-care (01) ==
LOC: JER 20:19
DX: H11.32 Conjunctival hemorrhage, left eye (principal); I10 Essential (primary) hypertension; M54.2 Cervicalgia
CPT/HCPCS: 99283-25

== ENCOUNTER 2024-05-01 10:01 | Emergency (ER) | payer OTHER ==
[2024-05-01 10:08] VITALS: BP 119/54; PULSE 89; RESP 20; TEMP 98; BMI 49.4
[2024-05-01] MEDS ORDERED: CEPHALEXIN MONOHYDRATE 500 MG CAPSULE (UD) ONE (11:06)
[2024-05-01] MEDS: CEPHALEXIN MONOHYDRATE 500 MG CAPSULE (UD) PO ONE (11:07)
[2024-05-01] MEDS ORDERED: DIPHTH,PERTUSS(ACELL),TET 0.5 ML DISP.SYRIN IM ONE (11:09)
[2024-05-01] MEDS: DIPHTH,PERTUSS(ACELL),TET 0.5 ML DISP.SYRIN IM ONE (11:20)
== END 2024-05-01 11:24 | disposition home or self-care (01) ==
LOC: JERFT 10:01
PROC: 3E0234Z Introduction of Serum, Toxoid and Vaccine into Muscle, Percutaneous Approach (ICD-10-PCS; principal; 2024-05-01)
DX: R22.0 Localized swelling, mass and lump, head (principal); L02.01 Cutaneous abscess of face; Z23 Encounter for immunization
CPT/HCPCS: 90471; 90715; 99283-25

== ENCOUNTER 2024-05-26 23:20 | Emergency (ER) | payer OTHER ==
[2024-05-26 23:26] VITALS: BP 147/80; PULSE 114; RESP 20; TEMP 98.6; BMI 43.9
[2024-05-27] MEDS ORDERED: LIDOCAINE 5% TOPICAL PATCH ONE (02:54)
[2024-05-27] MEDS ORDERED: ACETAMINOPHEN 500 MG TABLET (FP) ONE (02:56)
[2024-05-27] MEDS: ACETAMINOPHEN 500 MG TABLET (FP) PO ONE (03:25)
[2024-05-27] MEDS: LIDOCAINE 5% TOPICAL PATCH TP ONE (03:25)
[2024-05-27] MEDS ORDERED: LIDOCAINE PATCH REMOVAL MC SCH (22:00)
== END 2024-05-27 04:50 | disposition home or self-care (01) ==
LOC: JER 23:20
DX: M25.551 Pain in right hip (principal); M25.552 Pain in left hip; M54.50 Low back pain, unspecified; M25.571 Pain in right ankle and joints of right foot; X50.1XXA Overexertion from prolonged static or awkward postures, initial encounter; W10.8XXA Fall (on) (from) other stairs and steps, initial encounter
CPT/HCPCS: 70450-TC; 72100-TC-FY; 73521-TC-FY; 73610-TC-LT-FY; 73630-TC-LT; 99284-25

== ENCOUNTER 2024-06-14 14:33 | Emergency (ER) | payer OTHER ==
[2024-06-14 14:40] VITALS: BP 132/77; PULSE 98; RESP 24; TEMP 99.3; BMI 49.4
[2024-06-14] MEDS ORDERED: ONDANSETRON 4 MG/2 ML VIAL ONE (15:19)
[2024-06-14] MEDS ORDERED: ACETAMINOPHEN INJECTION 100 ML IVPB ONE (15:19)
[2024-06-14] MEDS ORDERED: FAMOTIDINE 20 MG/50 ML IVPB 20 MG/50 ML MG IVPB ONE (15:20)
[2024-06-14] MEDS: ONDANSETRON 4 MG/2 ML VIAL IVPUSH ONE (15:39)
[2024-06-14] MEDS: ACETAMINOPHEN 1000 MG/100 ML BAG IVPB ONE (15:39)
[2024-06-14] MEDS: FAMOTIDINE 20 MG/50 ML IVPB 20 MG/50 ML MG IVPB ONE (15:39)
[2024-06-14] MEDS: SODIUM CHLORIDE 0.9% 500 ML INFUS.BAG IV ONE (15:39)
[2024-06-14 15:43] LABS: BASO % 0.4 % (0-2.0); EOS % 2.2 % (0-4.5); HEMATOCRIT 36.5 % (32.4-45.2); HEMOGLOBIN 11.7 GM/dL (10.7-15.3); LYMPH % 27.1 % (8-40); MCH 23.5 pg (25.7-33.7); MEAN CELL VOLUME 73.4 fl (80-96); MEAN PLT VOLUME 8.4 fl (7.5-11.1); MONO % 5.4 % (3.8-10.2); NEUT % 64.9 % (42.8-82.8); PLATELET COUNT 315 10^3/uL (134-434); RBC 4.98 M/mm3 (3.60-5.2); RDW 16.6 % (11.6-15.6); WHITE BLOOD COUNT 10.3 K/mm3 (4.0-10.0)
[2024-06-14 16:10] LABS: POTASSIUM 3.6 mmol/L (3.5-5.1)
[2024-06-14 16:12] LABS: ALBUMIN 3.5 g/dl (3.4-5.0); BLOOD UREA NITROGEN 9.1 mg/dL (7-18)
[2024-06-14 16:15] LABS: CREATININE 0.7 mg/dL (0.55-1.3)
[2024-06-14 16:17] LABS: BILIRUBIN,TOTAL 0.4 mg/dL (0.2-1); TOT PROT 7.5 g/dl (6.4-8.2)
[2024-06-14] MEDS ORDERED: MAG HYDROX/AL HYDROX/SIMETH 30 ML UNIT-DOSE CUP ONE (16:36)
[2024-06-14] MEDS ORDERED: KETOROLAC TROMETHAMINE 15 MG/ML VIAL ONE (16:36)
[2024-06-14] MEDS: MAG HYDROX/AL HYDROX/SIMETH 30 ML UNIT-DOSE CUP PO ONE (16:42)
[2024-06-14] MEDS: KETOROLAC TROMETHAMINE 15 MG/ML VIAL IVPUSH ONE (16:42)
== END 2024-06-14 19:11 | disposition home or self-care (01) ==
LOC: JER 14:33
PROC: 3E033GC Introduction of Other Therapeutic Substance into Peripheral Vein, Percutaneous Approach (ICD-10-PCS; principal; 2024-06-14)
PROC: 3E033GC Introduction of Other Therapeutic Substance into Peripheral Vein, Percutaneous Approach (ICD-10-PCS; 2024-06-14)
PROC: 3E033NZ Introduction of Analgesics, Hypnotics, Sedatives into Peripheral Vein, Percutaneous Approach (ICD-10-PCS; 2024-06-14)
PROC: 3E0333Z Introduction of Anti-inflammatory into Peripheral Vein, Percutaneous Approach (ICD-10-PCS; 2024-06-14)
DX: R11.10 Vomiting, unspecified (principal); R10.10 Upper abdominal pain, unspecified; R07.0 Pain in throat; R07.9 Chest pain, unspecified
CPT/HCPCS: 36415; 74177-TC; 80053; 83690; 84703; 85025; 99285-25; J0131